=== PATIENT | female | born 1990 | race American Indian/Alaskan Native ===

== ENCOUNTER 2017-03-22 01:46 | Emergency (ER) | payer MEDICAID ==
[2017-03-22 08:04] VITALS: BMI 37.2
== END 2017-03-22 06:58 | disposition left against medical advice (07) ==
LOC: ED 01:46
DX: Z02.89 Encounter for other administrative examinations (principal); M25.561 Pain in right knee

== ENCOUNTER 2017-03-22 07:39 | Emergency (ER) | payer MEDICAID ==
[2017-03-22 08:04] VITALS: RESP 16; TEMP 98.3; BMI 37.2
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
--- NOTE | 2017-03-22 09:48 | RAD ---
PROCEDURE: Right Knee Radiographs. HISTORY: r/o fracture COMPARISON: No prior study available for comparison FINDINGS: BONES: No evidence of acute displaced fracture nor dislocation. The osseous structures appear intact. JOINTS: Joint spaces preserved. No significant osteoarthritis. . JOINT EFFUSION: Small suprapatellar joint effusion OTHER FINDINGS: No acute fracture seen. Small suprapatellar joint effusion IMPRESSION: No acute fracture seen. Small suprapatellar joint effusion if symptoms persist or occult fracture suspected clinically recommend repeat followup CT scan or MRI for further evaluation.
[2017-03-22 09:51] VITALS: BP 92/62; PULSE 90; O2SAT 98
== END 2017-03-22 09:52 | disposition home or self-care (01) ==
LOC: ED 07:39
DX: S83.91XA Sprain of unspecified site of right knee, initial encounter (principal); X50.0XXA Overexertion from strenuous movement or load, initial encounter; Y93.89 Activity, other specified; Y92.89 Other specified places as the place of occurrence of the external cause

== ENCOUNTER 2017-04-16 20:29 | Emergency (ER) | payer MEDICAID ==
[2017-04-16 21:09] VITALS: RESP 16; TEMP 98.3; BMI 36.0
--- NOTE | 2017-04-16 21:30 | ED PDOC ---
Arrival/HPI - General Chief Complaint: Lower Extremity Problem/Injury Time Seen by Provider: 04/16/17 20:52 - History of Present Illness Narrative History of Present Illness (Text): 04/16/17 21:28 26 yo female, presents with right lower leg pain after injury a few weeks ago. pt had neg knee imaging, but states pain now in her lower leg. no new trauma, or other complaint Past Medical History - Provider Review Nursing Documentation Reviewed: Yes - Infectious Disease Hx of Infectious Diseases: None - Tetanus Immunization Tetanus Immunization: Unknown - Cardiac Hx Cardiac Disorders: No - Pulmonary Hx Respiratory Disorders: No - Neurological Hx Neurological Disorder: No - HEENT Hx HEENT Disorder: No - Renal Hx Renal Disorder: No - Endocrine/Metabolic Hx Endocrine Disorders: No - Hematological/Oncological Hx Blood Disorders: Yes Hx Anemia: Yes (sickle cell) Hx Sickle Cell Trait: Yes - Integumentary Hx Dermatological Disorder: No - Musculoskeletal/Rheumatological Hx Musculoskeletal Disorders: No - Gastrointestinal Hx Gastrointestinal Disorders: No - Genitourinary/Gynecological Hx Genitourinary Disorders: No - Psychiatric Hx Psychophysiologic Disorder: No Hx Substance Use: No - Surgical History Hx Tonsillectomy: Yes (2009) - Anesthesia Hx Anesthesia: Yes Hx Anesthesia Reactions: No Hx Malignant Hyperthermia: No - Suicidal Assessment Feels Threatened In Home Enviroment: No Family/Social History - Physician Review Nursing Documentation Reviewed: Yes Family/Social History: Unknown Family HX Smoking Status: Never Smoked Hx Alcohol Use: No Hx Substance Use: No Hx Substance Use Treatment: No Allergies/Home Meds Allergies/Adverse Reactions: Allergies No Known Allergies Allergy (Verified 03/22/17 08:04) Review of Systems - Review of Systems Constitutional: Normal Eyes: Normal ENT: Normal Respiratory: Normal Cardiovascular: Normal Gastrointestinal: Normal Genitourinary Female: Normal Musculoskeletal: Other (leg pain) Skin: Normal Neurological: Normal Endocrine: Normal Hemo/Lymphatic: Normal Psychiatric: Normal Physical Exam Vital Signs Temp Pulse Resp BP Pulse Ox 04/16/17 23:25 72 16 114/82 100 04/16/17 21:08 98.3 F 77 16 112/78 97 Temperature: Afebrile Blood Pressure: Normal Pulse: Regular Respiratory Rate: Normal Appearance: Positive for: Well-Appearing, Non-Toxic, Comfortable Pain Distress: None Mental Status: Positive for: Alert and Oriented X 3 - Systems Exam Head: Present: Atraumatic, Normocephalic Pupils: Present: PERRL Extroacular Muscles: Present: EOMI Conjunctiva: Present: Normal Mouth: Present: Moist Mucous Membranes Neck: Present: Normal Range of Motion Respiratory/Chest: Present: Clear to Auscultation, Good Air Exchange. No: Respiratory Distress, Accessory Muscle Use Cardiovascular: Present: Regular Rate and Rhythm, Normal S1, S2. No: Murmurs Abdomen: Present: Normal Bowel Sounds. No: Tenderness, Distention, Peritoneal Signs Back: Present: Normal Inspection Upper Extremity: Present: Normal Inspection. No: Cyanosis, Edema Lower Extremity: Present: Normal Inspection, NORMAL PULSES, Tenderness (right knee lower leg), Swelling (right knee/lower leg), Neurovascularly Intact. No: Edema, Deformity Neurological: Present: GCS=15, CN II-XII Intact, Speech Normal Skin: Present: Warm, Dry, Normal Color. No: Rashes Psychiatric: Present: Alert, Oriented x 3, Normal Insight, Normal Concentration Medical Decision Making ED Course and Treatment: 04/17/17 15:10 pt with3 weeks of lower leg pain. no new trauma. repeat imaging neg. dvt study neg. advise outpt f/u return precautions advised. 04/17/17 15:10 pt given knee immoblizer and crutches. - RAD Interpretation Radiology Orders: 04/16/17 21:13 KNEE RIGHT 2 VIEWS (AP & LAT) [RAD] Stat TIBIA FIBULA RIGHT [RAD] Stat 04/16/17 21:26 DUPLEX LOWER EXTRM VEIN RIGHT [US] Stat - Medication Orders Current Medication Orders: Discontinued Medications Acetaminophen (Tylenol 325mg Tab) 975 mg PO STAT STA Stop: 04/16/17 21:14 Last Admin: 04/16/17 21:23 Dose: 975 mg Disposition/Present on Arrival - Present on Arrival Any Indicators Present on Arrival: No History of DVT/PE: No History of Uncontrolled Diabetes: No Urinary Catheter: No History of Decub. Ulcer: No History Surgical Site Infection Following: None - Disposition Have Diagnosis and Disposition been Completed?: Yes Diagnosis: Leg injury Disposition: HOME/ ROUTINE Disposition Time: 11:00 Condition: STABLE Discharge Instructions (ExitCare): Knee Sprain (ED), Leg Sprain (ED), Knee Immobilizer (ED) Referrals: Rome Hansen MD [Staff Provider] - Follow up with primary Rin Linares DO [Primary Care Provider] - Follow up with primary Forms: [employer] (Japanese)
[2017-04-16 23:28] VITALS: BP 114/82; PULSE 72; O2SAT 100
--- NOTE | 2017-04-17 08:06 | US ---
PROCEDURE: Right lower extremity venous US HISTORY: Leg pain and swelling. Evaluate for DVT. PHYSICIAN(S): Iraj Guidry M.D. TECHNIQUE: Duplex sonography and color-flow Doppler with graded compression were used to evaluate the deep venous system of the right lower extremity. FINDINGS: The visualized deep venous system of the right lower extremity is sonographically normal and compressible. Normal waveforms and augmentation are seen. There is no sonographic evidence for deep venous thrombosis in the visualized segments of the right lower extremity. IMPRESSION: 1. No sonographic evidence for deep venous thrombosis in the visualized segments of the right lower extremity.
--- NOTE | 2017-04-17 09:24 | RAD ---
PROCEDURE: Right Knee Radiographs. HISTORY: fall COMPARISON: None. FINDINGS: BONES: Normal. No fracture. JOINTS: Normal. No osteoarthritis. JOINT EFFUSION: None. OTHER FINDINGS: None. IMPRESSION: Normal radiographs of the right knee.
--- NOTE | 2017-04-17 09:24 | RAD ---
PROCEDURE: Radiographs of the right tibia and fibula. HISTORY: fall COMPARISON: None available. TECHNIQUE: Frontal and lateral views obtained. FINDINGS: BONES: No fracture or destructive lesion. JOINT SPACES: Unremarkable. OTHER FINDINGS: None. IMPRESSION: Unremarkable radiographs of the right tibia and fibula.
== END 2017-04-16 23:27 | disposition home or self-care (01) ==
LOC: ED 20:29
DX: S89.91XA Unspecified injury of right lower leg, initial encounter (principal); X58.XXXA Exposure to other specified factors, initial encounter

== ENCOUNTER 2017-07-24 07:13 | Emergency (ER) | payer OTHER, MEDICAID ==
[2017-07-24 07:41] VITALS: BP 108/66; PULSE 69; RESP 18; TEMP 98.4; O2SAT 100; BMI 38.4
--- NOTE | 2017-07-24 08:02 | ED PDOC ---
Arrival/HPI - General Chief Complaint: Trauma Time Seen by Provider: 07/24/17 07:42 Historian: Patient - History of Present Illness Narrative History of Present Illness (Text): 07/24/17 08:02 A 26 year old female, whose past medical history includes anemia and tonsillectomy, presents to the emergency department requesting an MRI for her right knee pain. The patient states that 3 weeks ago she sustained an injury to her right knee at work. She was sent to the work place's doctor and an X-Ray was done, which appeared to be normal. She was also seen at [facility] where she had an X-Ray and CT done with no acute findings. At physical therapy she was told that it may be a torn ACL and was advised to get an MRI. The patient denies fevers, chills, headache, dizziness, chest pain, shortness of breath, dyspnea on exertion, cough, abdominal pain, nausea, vomiting, diarrhea, back pain, neck pain, urinary/bowel changes, or any other complaint. PMD: Dr. Matias Linares Time/Duration: Other (3 weeks) Symptom Onset: Sudden Symptom Course: Unchanged Activities at Onset: Rest, Light Context: Work Past Medical History - Provider Review Nursing Documentation Reviewed: Yes - Infectious Disease Hx of Infectious Diseases: None - Tetanus Immunization Tetanus Immunization: Unknown - Cardiac Hx Cardiac Disorders: No - Pulmonary Hx Respiratory Disorders: No - Neurological Hx Neurological Disorder: No - HEENT Hx HEENT Disorder: No - Renal Hx Renal Disorder: No - Endocrine/Metabolic Hx Endocrine Disorders: No - Hematological/Oncological Hx Blood Disorders: Yes Hx Anemia: Yes (sickle cell) Hx Sickle Cell Trait: Yes - Integumentary Hx Dermatological Disorder: No - Musculoskeletal/Rheumatological Hx Musculoskeletal Disorders: No - Gastrointestinal Hx Gastrointestinal Disorders: No - Genitourinary/Gynecological Hx Genitourinary Disorders: No - Psychiatric Hx Psychophysiologic Disorder: No Hx Substance Use: No - Surgical History Hx Tonsillectomy: Yes (2009) - Anesthesia Hx Anesthesia: Yes Hx Anesthesia Reactions: No Hx Malignant Hyperthermia: No - Suicidal Assessment Feels Threatened In Home Enviroment: No Family/Social History - Physician Review Nursing Documentation Reviewed: Yes Family/Social History: No Known Family HX Smoking Status: Never Smoked Hx Alcohol Use: No Hx Substance Use: No Hx Substance Use Treatment: No Allergies/Home Meds Allergies/Adverse Reactions: Allergies No Known Allergies Allergy (Verified 07/16/17 08:04) Home Medications: Home Meds Medication Instructions Recorded Confirmed Ibuprofen [Advil] 500 mg PO HS 07/24/17 07/24/17 Review of Systems - Physician Review All systems were reviewed & negative as marked: Yes - Review of Systems Constitutional: absent: Fevers Cardiovascular: absent: Chest Pain Physical Exam - Physical Exam Narrative Physical Exam (Text): 07/24/17 08:05 Constitutional: No acute distress. Head: Normocephalic. Atraumatic. Eyes: PERRL. ENT: Moist mucous membranes. Neck: Supple. Cardiovascular: Regular rate. Chest: No tenderness. Respiratory: Clear to auscultation bilaterally. GI: Soft. Nontender. Nondistended. Back: No CVA tenderness. Musculoskeletal: Mild swelling of knee. Full active and passive ROM. No bony tenderness. Minimal edema. Dorsalis pedis pulses 2+. Skin: No rash. Neurologic: Alert, no focal deficit. Sensation to light touch intact. Motor intact. Vital Signs Reviewed: Yes Vital Signs Temp Pulse Resp BP Pulse Ox 07/24/17 07:14 98.4 F 69 18 108/66 100 Temperature: Afebrile Blood Pressure: Normal Pulse: Regular Respiratory Rate: Normal Appearance: Positive for: Well-Appearing, Non-Toxic, Comfortable Pain Distress: None Mental Status: Positive for: Alert and Oriented X 3 Medical Decision Making ED Course and Treatment: 07/24/17 08:07 Impression: A 26 year old female presents to the emergency department requesting an MRI for he right knee pain . Plan: -- Reassess and disposition Prior Visits: Notes and results from previous visits were reviewed. Patient was last seen in the emergency department on 07/13/2017. The patient was seen in the emergency department with a complaint of right knee pain. Patient was discharged home. Progress Notes: I reviewed CT which did reveal suprapatellar effusion, small. May be due to ACL tear, can be other ligamentous injury as well. Informed patient that no indication for MRI in ED, unable to obtain. Discharged home, f/u primary care, return to ED for worsening pain, fever, inability to range. - Scribe Statement The provider has reviewed the documentation as recorded by the Jerry Cano Provider Scribe Attestation: All medical record entries made by the Scribe were at my direction and personally dictated by me. I have reviewed the chart and agree that the record accurately reflects my personal performance of the history, physical exam, medical decision making, and the department course for this patient. I have also personally directed, reviewed, and agree with the discharge instructions and disposition. Disposition/Present on Arrival - Present on Arrival Any Indicators Present on Arrival: No History of DVT/PE: No History of Uncontrolled Diabetes: No Urinary Catheter: No History of Decub. Ulcer: No History Surgical Site Infection Following: None - Disposition Have Diagnosis and Disposition been Completed?: Yes Diagnosis: Knee injury Disposition: HOME/ ROUTINE Disposition Time: 08:03 Patient Plan: Discharge Condition: STABLE Discharge Instructions (ExitCare): Swollen Knee Joint (ED) Referrals: Rin Linares DO [Primary Care Provider] - Follow up with primary Forms: [employer] (Romanian)
== END 2017-07-24 08:16 | disposition home or self-care (01) ==
LOC: ED 07:13
DX: S89.91XD Unspecified injury of right lower leg, subsequent encounter (principal); X50.1XXD Overexertion from prolonged static or awkward postures, subsequent encounter

== ENCOUNTER 2017-08-07 08:23 | Emergency (ER) | payer MEDICAID, OTHER ==
[2017-08-07 08:23] VITALS: BMI 38.4
--- NOTE | 2017-08-07 08:57 | ED PDOC ---
Arrival/HPI - History of Present Illness Time/Duration: > month Symptom Onset: Sudden Symptom Course: Unchanged Quality: Stabbing Severity Level: 7 <Venus Setele - Last Filed: 08/07/17 10:13> - General Historian: Patient <Ramón Sweeney - Last Filed: 08/07/17 14:34> - General Chief Complaint: Lower Extremity Problem/Injury Time Seen by Provider: 08/07/17 08:24 - History of Present Illness Narrative History of Present Illness (Text): 26 year old female with PMHx of anemia who presents to the ED with complaints of right knee pain. Patient has been to this ED several times for same symptoms. Patient suffered trauma to the knee in March and then again in July. Previous x-rays were negative for any fractures or dislocations. CT scan showed small suprapatellar joint effusion. Today patient complains of 7/ 10 sharp, non-radiating pain right knee pain with mild swelling and decreased range of motion. Patient has been going to PT which she states has not helped. She has been using ibuprofen 600mg and Tramadol to control the pain. PMHx: Anemia PSHx: tonsillectormy Allergies: NKDA SocialHx: denies tobacco, admits to social alcohol use, denies illicit drug use. FamHx: Diabetes (Great grandmother, and grandmother) Meds: Weekly IV iron. (Venus Steele) Past Medical History - Provider Review Nursing Documentation Reviewed: Yes - Infectious Disease Hx of Infectious Diseases: None - Tetanus Immunization Tetanus Immunization: Unknown - Cardiac Hx Cardiac Disorders: No - Pulmonary Hx Respiratory Disorders: No - Neurological Hx Neurological Disorder: No - HEENT Hx HEENT Disorder: No - Renal Hx Renal Disorder: No - Endocrine/Metabolic Hx Endocrine Disorders: No - Hematological/Oncological Hx Blood Disorders: Yes Hx Anemia: Yes (sickle cell) - Integumentary Hx Dermatological Disorder: No - Musculoskeletal/Rheumatological Hx Musculoskeletal Disorders: No - Gastrointestinal Hx Gastrointestinal Disorders: No - Genitourinary/Gynecological Hx Genitourinary Disorders: No - Psychiatric Hx Psychophysiologic Disorder: No Hx Substance Use: No - Surgical History Hx Tonsillectomy: Yes (2009) - Anesthesia Hx Anesthesia: Yes Hx Anesthesia Reactions: No Hx Malignant Hyperthermia: No - Suicidal Assessment Feels Threatened In Home Enviroment: No <Venus Steele - Last Filed: 08/07/17 10:13> Family/Social History - Physician Review Nursing Documentation Reviewed: Yes Family/Social History: Diabetes Smoking Status: Never Smoked Hx Alcohol Use: Yes Frequency of alcohol use: Socially Hx Substance Use: No Hx Substance Use Treatment: No <Venus Steele - Last Filed: 08/07/17 10:13> Allergies/Home Meds <Venus Steele - Last Filed: 08/07/17 10:13> <Ramón Sweeney - Last Filed: 08/07/17 14:34> Allergies/Adverse Reactions: Allergies No Known Allergies Allergy (Verified 08/07/17 08:34) Home Medications: Home Meds Medication Instructions Recorded Confirmed No Known Home Med 08/07/17 08/07/17 Review of Systems - Physician Review All systems were reviewed & negative as marked: Yes (As per HPI) - Review of Systems Respiratory: Normal. absent: SOB Cardiovascular: Normal. absent: Chest Pain Gastrointestinal: Normal. absent: Abdominal Pain <Venus Steele - Last Filed: 08/07/17 10:13> Physical Exam Vital Signs Reviewed: Yes Temperature: Afebrile Blood Pressure: Normal Pulse: Regular Respiratory Rate: Normal Appearance: Positive for: Well-Appearing Pain Distress: Mild Mental Status: Positive for: Alert and Oriented X 3 - Systems Exam Head: Present: Atraumatic, Normocephalic Conjunctiva: Present: Normal Ears: Present: Normal Mouth: Present: Moist Mucous Membranes Respiratory/Chest: Present: Clear to Auscultation. No: Wheezes Cardiovascular: Present: Regular Rate and Rhythm, Normal S1, S2. No: Murmurs Abdomen: No: Tenderness Upper Extremity: Present: Other (Right Knee Pain. TTP around superior and medial aspect of knee. Positive patella grind test and Varus stress test. Negative Lachmans, anteior and posterior grind test. ) Neurological: Present: GCS=15, Speech Normal <Venus Steele - Last Filed: 08/07/17 10:13> Vital Signs Temp Pulse Resp BP Pulse Ox 08/07/17 10:12 98.1 F 72 17 125/82 98 08/07/17 08:29 97.6 F 84 16 124/70 99 Medical Decision Making <CedricVenus - Last Filed: 08/07/17 10:13> <Ramón Sweeney - Last Filed: 08/07/17 14:34> ED Course and Treatment: 26 year old female with PMHx of Anemia presents with Right knee pain --Right Knee X-ray --Toradol for Pain Control --Patient has been told that MRI was not indicated in the ED for her at this time. --Patient was advised to follow up with primary care doctor or orthopedic surgeon evaluation and referral for MRI --Reassess and disposition Reassessment --X-ray negative for acute fractures or displacement. --Will ask patient to take over the counter NSAIDS for pain control --Will reinforce the need to follow up with her primary care doctor or Orthopedic Surgeon/Sport Medicine Physician. 08/07/17 09:58 (Venus Steele) 08/07/17 11:51 Zeb Leiva is a 26 year old female who presents to the emergency department with right knee pain requesting an MRI. She has been treated in the emergency department for her currents symptoms. In agreement with resident note which contains more details about the patient. Patient was seen and evaluated with resident. Came up with plan and treatment together. 08/07/17 14:34 seen with resident, persistent knee pain due for outpt mri. xr neg. advise outpt mri. (Ramón Sweeney) - RAD Interpretation Radiology Orders: 08/07/17 08:55 KNEE W PATELLA RIGHT 3 VIEW [RAD] Stat Disposition/Present on Arrival - Present on Arrival Any Indicators Present on Arrival: No History of DVT/PE: No History of Uncontrolled Diabetes: No Urinary Catheter: No History of Decub. Ulcer: No History Surgical Site Infection Following: None - Disposition Have Diagnosis and Disposition been Completed?: Yes Disposition Time: 09:51 <Venus Steele - Last Filed: 08/07/17 10:13> <Ramón Sweeney - Last Filed: 08/07/17 14:34> - Disposition Diagnosis: Knee pain Disposition: HOME/ ROUTINE Condition: GOOD Discharge Instructions (ExitCare): Knee Pain (ED) Additional Instructions: Please follow up with your primary care physician. Please follow up with an orthopedic surgeon or sports medicine physician. You may continue to take Ibuprofen for pain control. You may Ice the area of pain for 20-30 minutes every 4 hours to help reduce any inflammation. Forms: [employer] ([place])
[2017-08-07 10:13] VITALS: BP 125/82; PULSE 72; RESP 17; TEMP 98.1; O2SAT 98
--- NOTE | 2017-08-07 10:36 | RAD ---
PROCEDURE: Right Knee Radiographs. HISTORY: Knee Pain COMPARISON: None. FINDINGS: BONES: Normal. No fracture. JOINTS: Normal. No osteoarthritis. JOINT EFFUSION: None. OTHER FINDINGS: None. IMPRESSION: Normal radiographs of the right knee.
== END 2017-08-07 10:13 | disposition home or self-care (01) ==
LOC: ED 08:23
DX: M25.561 Pain in right knee (principal)

== ENCOUNTER 2017-08-22 09:35 | Emergency (ER) | payer OTHER ==
[2017-08-22 09:35] VITALS: BMI 38.4
[2017-08-22 09:57] VITALS: BP 119/71; PULSE 79; RESP 18; TEMP 98.5; O2SAT 99
--- NOTE | 2017-08-22 10:03 | ED PDOC ---
Arrival/HPI - General Historian: Patient <Christian Belle A - Last Filed: 08/22/17 10:05> <Jo-Ann Mayers - Last Filed: 08/23/17 18:38> - General Chief Complaint: Lower Extremity Problem/Injury Time Seen by Provider: 08/22/17 09:54 - History of Present Illness Narrative History of Present Illness (Text): 08/22/17 10:05 26yo female with PMHx of anemia present with right knee pain. she reports falling a month ago and injuring the knee. Notes that she had negative knee xray and had an MRI yesterday. Pain is with ambulation. Came to ED today because she was sent from work and she was required to see a Doctor. she states she have Ibuprofen 600mg, but stopped taking it because it wasn't working. she have Orthopedic appointment on Thursday. Denies calf pain, swelling, any other complaint. (Christian Belle A) Past Medical History - Provider Review Nursing Documentation Reviewed: Yes - Infectious Disease Hx of Infectious Diseases: None - Tetanus Immunization Tetanus Immunization: Unknown - Cardiac Hx Cardiac Disorders: No - Pulmonary Hx Respiratory Disorders: No - Neurological Hx Neurological Disorder: No - HEENT Hx HEENT Disorder: No - Renal Hx Renal Disorder: No - Endocrine/Metabolic Hx Endocrine Disorders: No - Hematological/Oncological Hx Blood Disorders: Yes Hx Anemia: Yes (sickle cell) - Integumentary Hx Dermatological Disorder: No - Musculoskeletal/Rheumatological Hx Musculoskeletal Disorders: No - Gastrointestinal Hx Gastrointestinal Disorders: No - Genitourinary/Gynecological Hx Genitourinary Disorders: No - Psychiatric Hx Psychophysiologic Disorder: No Hx Substance Use: No - Surgical History Hx Tonsillectomy: Yes (2009) - Anesthesia Hx Anesthesia: Yes Hx Anesthesia Reactions: No Hx Malignant Hyperthermia: No - Suicidal Assessment Feels Threatened In Home Enviroment: No <Christian Belle A - Last Filed: 08/22/17 10:05> Family/Social History - Physician Review Nursing Documentation Reviewed: Yes Family/Social History: Unknown Family HX Smoking Status: Never Smoked Hx Alcohol Use: Yes Hx Substance Use: No Hx Substance Use Treatment: No <Christian Belle A - Last Filed: 08/22/17 10:05> Allergies/Home Meds <Christian Belle A - Last Filed: 08/22/17 10:05> <Jo-Ann Mayers - Last Filed: 08/23/17 18:38> Allergies/Adverse Reactions: Allergies No Known Allergies Allergy (Verified 08/22/17 09:50) Review of Systems - Physician Review All systems were reviewed & negative as marked: Yes - Review of Systems Constitutional: Normal Eyes: Normal ENT: Normal Respiratory: Normal Cardiovascular: Normal Gastrointestinal: Normal Genitourinary Female: Normal Musculoskeletal: Arthralgias (Right knee pain) Skin: Normal Neurological: Normal Endocrine: Normal Hemo/Lymphatic: Normal Psychiatric: Normal <DiruChristian A - Last Filed: 08/22/17 10:05> Physical Exam Vital Signs Reviewed: Yes Temperature: Afebrile Blood Pressure: Normal Pulse: Regular Respiratory Rate: Normal Appearance: Positive for: Well-Appearing, Non-Toxic, Comfortable Pain Distress: None Mental Status: Positive for: Alert and Oriented X 3 - Systems Exam Head: Present: Atraumatic, Normocephalic Pupils: Present: PERRL Extroacular Muscles: Present: EOMI Conjunctiva: Present: Normal Mouth: Present: Moist Mucous Membranes Neck: Present: Normal Range of Motion Respiratory/Chest: Present: Clear to Auscultation, Good Air Exchange. No: Respiratory Distress, Accessory Muscle Use Cardiovascular: Present: Regular Rate and Rhythm, Normal S1, S2. No: Murmurs Abdomen: Present: Normal Bowel Sounds. No: Tenderness, Distention, Peritoneal Signs Back: Present: Normal Inspection Upper Extremity: Present: Normal Inspection. No: Cyanosis, Edema Lower Extremity: Present: NORMAL PULSES, Normal ROM, Tenderness (Focal medial right knee), Neurovascularly Intact. No: Edema, Swelling Neurological: Present: GCS=15, CN II-XII Intact, Speech Normal Skin: Present: Warm, Dry, Normal Color. No: Rashes Psychiatric: Present: Alert, Oriented x 3, Normal Insight, Normal Concentration <DiruHappiness A - Last Filed: 08/22/17 10:05> Vital Signs Temp Pulse Resp BP Pulse Ox 08/22/17 09:40 98.5 F 79 18 119/71 99 Medical Decision Making <katharinaHappiness A - Last Filed: 08/22/17 10:05> <Jo-Ann Mayers - Last Filed: 08/23/17 18:38> ED Course and Treatment: 08/22/17 10:09 Pt was ambulatory in ED. she have a PMD and orthopedist. She was given Tramadol in ED and will be DC home with a Naprosyn. To f/u with her Orthopedist. (Christian Belle) - Medication Orders Current Medication Orders: Discontinued Medications Tramadol HCl (Ultram) 50 mg PO STAT STA Stop: 08/22/17 09:55 Last Admin: 08/22/17 10:28 Dose: 50 mg MAR Pain Assessment Document 08/22/17 10:28 EWO (Rec: 08/22/17 10:28 EWO [id number]) Pain Reassessment Is this a pain reassessment? No Sleep Is patient sleeping during reassessment? No Presence of Pain Presence of Pain Yes Pain Scale Used Pain Scale Used Numeric Location Left, Right or Bilateral Right Pain Location Body Site Knee Description Description Intermittent Intensity of Pain at present 7 Pain Behavior Guarding - PA / SAUSAGE SMOKER / Resident Statement / has reviewed & agrees with the documentation as recorded. <Jo-Ann Mayers - Last Filed: 08/23/17 18:38> Disposition/Present on Arrival - Present on Arrival Any Indicators Present on Arrival: No History of DVT/PE: No History of Uncontrolled Diabetes: No Urinary Catheter: No History of Decub. Ulcer: No History Surgical Site Infection Following: None - Disposition Have Diagnosis and Disposition been Completed?: Yes Disposition Time: 10:10 Patient Plan: Discharge <Christian Belle - Last Filed: 08/22/17 10:05> - Present on Arrival Any Indicators Present on Arrival: No History of DVT/PE: No History of Uncontrolled Diabetes: No Urinary Catheter: No History of Decub. Ulcer: No History Surgical Site Infection Following: None - Disposition Have Diagnosis and Disposition been Completed?: Yes Patient Plan: Discharge <Jo-Ann Mayers - Last Filed: 08/23/17 18:38> - Disposition Diagnosis: Knee pain Disposition: HOME/ ROUTINE Condition: STABLE Discharge Instructions (ExitCare): Knee Pain (ED) Additional Instructions: Follow up with your Doctor/orthopedist TRT ED for any new or worsening symptoms Prescriptions: Naproxen [Naprosyn] 500 mg PO BID #20 tablet Referrals: Rin Linares DO [Primary Care Provider] - Follow up with primary Forms: [employer] ([place])
== END 2017-08-22 10:31 | disposition home or self-care (01) ==
LOC: ED 09:35
DX: M25.561 Pain in right knee (principal)

== ENCOUNTER 2018-05-31 08:40 | Emergency (ER) | payer MEDICAID ==
[2018-05-31 08:41] VITALS: BMI 38.4
[2018-05-31 09:00] VITALS: RESP 18; TEMP 98.4; O2SAT 100
[2018-05-31] MEDS ORDERED: Sodium Chloride 0.9% 1,000 ML IV STA (09:19)
[2018-05-31 09:41] LABS: BASO # 0.01 K/mm3 (0.0-2.0); GRAN # 17.85 (1.4-6.5); GRAN % 88.2 % (50.0-68.0); HEMOGLOBIN 10.1 g/dL (12.0-16.0); LYMPH # 1.6 (1.2-3.4); LYMPH % 7.9 % (22.0-35.0); MEAN CELL VOLUME 74.9 fl (80.0-105.0); MEAN CORPUSCULAR HEMOGLOBIN 23.1 pg (25.0-35.0); MEAN CORPUSCULAR HGB CONC 30.8 g/dl (31.0-37.0); MEAN PLATELET VOLUME 8.8 fl (7.0-11.0); MONO # 0.8 (0.1-0.6); MONO % 3.9 % (1.0-6.0); RBC 4.38 10^6/uL (3.5-6.1); WHITE BLOOD COUNT 20.3 10^3/ul (4.5-11.0)
[2018-05-31 09:50] LABS: PH,URINE >=9.0 (4.7-8.0); URINE BILIRUBIN NEGATIVE (NEGATIVE); URINE BLOOD LARGE (NEGATIVE); URINE GLUCOSE (UA) NEGATIVE (NEGATIVE); URINE LEUKOCYTE ESTERASE TRACE Leu/uL (NEGATIVE); URINE PROTEIN 100 mg/dL (<30 mg/dL)
[2018-05-31 09:52] LABS: URINE APPEARANCE TURBID (CLEAR); URINE COLOR RED (YELLOW)
[2018-05-31 09:54] LABS: URINE BACTERIA FEW (NEG); URINE RBC TNTC /hpf (0-2)
[2018-05-31 09:56] LABS: ALBUMIN 4.3 g/dL (3.0-4.8); ALT/SGPT 16 U/L (7-56); AST/SGOT 27 U/L (14-36); BLOOD UREA NITROGEN 6 mg/dL (7-21); CALCIUM 9.5 mg/dL (8.4-10.5); GFR NON-AFRICAN AMERICAN > 60; LIPASE 29 U/L (23-300)
--- NOTE | 2018-05-31 09:56 | ED PDOC ---
Arrival/HPI - General Chief Complaint: Abdominal Pain Time Seen by Provider: 05/31/18 08:57 Historian: Patient - History of Present Illness Narrative History of Present Illness (Text): 05/31/18 09:15 27 year old female, whose past medical history includes tonsillectomy and anemia, who presents to the Emergency department complaining of lower abdominal pain for the past 2 weeks, 8/10 pain described as pressure. Patient notes nausea and slight decrease in appetite. Patient denies any fever, chills, chest pain, shortness of breath, vomiting, diarrhea, urinary symptoms, vaginal bleeding/discharge, back pain, neck pain, headache, dizziness, or any other complaints. Time/Duration: < week (past 2 weeks) Symptom Onset: Sudden Symptom Course: Unchanged Quality: Pressure Severity Level: 8 Context: Home Past Medical History - Provider Review Nursing Documentation Reviewed: Yes - Infectious Disease Hx of Infectious Diseases: None - Tetanus Immunization Tetanus Immunization: Unknown - Cardiac Hx Pacemaker: No - Pulmonary Hx Respiratory Disorders: No - Neurological Hx Paralysis: No - HEENT Hx HEENT Disorder: No - Renal Hx Renal Disorder: No - Endocrine/Metabolic Hx Endocrine Disorders: No - Hematological/Oncological Hx Blood Disorders: Yes Hx Anemia: Yes Hx Blood Transfusions: Yes (LAST WEEK) Hx Blood Transfusion Reaction: No - Integumentary Hx Dermatological Disorder: No - Musculoskeletal/Rheumatological Hx Musculoskeletal Disorders: No - Gastrointestinal Hx Gastrointestinal Disorders: No - Genitourinary/Gynecological Hx Genitourinary Disorders: No - Psychiatric Hx Emotional Abuse: No Hx Physical Abuse: No Hx Substance Use: No - Surgical History Hx Tonsillectomy: Yes - Anesthesia Hx Anesthesia Reactions: No Hx Malignant Hyperthermia: No - Suicidal Assessment Feels Threatened In Home Enviroment: No Family/Social History - Physician Review Nursing Documentation Reviewed: Yes Family/Social History: No Known Family HX Smoking Status: Never Smoked Hx Alcohol Use: Yes (SOCIAL) Frequency of alcohol use: Socially Hx Substance Use: No Hx Substance Use Treatment: No Allergies/Home Meds Allergies/Adverse Reactions: Allergies No Known Allergies Allergy (Verified 05/31/18 08:59) Home Medications: Home Meds Medication Instructions Recorded Confirmed RX: No Known Home Med 05/28/18 06/02/18 Review of Systems - Physician Review All systems were reviewed & negative as marked: Yes - Review of Systems Constitutional: Normal. absent: Fevers Eyes: Normal ENT: Normal Respiratory: Normal. absent: SOB Cardiovascular: Normal. absent: Chest Pain Gastrointestinal: Abdominal Pain (patient notes lower abdominal pain), Nausea (patient notes nausea), Appetite Changes (patient notes slight decrease in appetite). absent: Normal, Diarrhea, Vomiting Genitourinary Female: Normal. absent: Dysuria, Vaginal Bleeding, Vaginal Discharge Musculoskeletal: Normal. absent: Back Pain, Neck Pain Skin: Normal Neurological: Normal. absent: Headache, Dizziness Endocrine: Normal Hemo/Lymphatic: Normal Psychiatric: Normal Physical Exam Vital Signs Reviewed: Yes Vital Signs Temp Pulse Resp BP Pulse Ox 05/31/18 16:10 66 18 109/58 L 100 05/31/18 15:48 68 18 107/53 L 100 05/31/18 14:28 73 18 113/61 100 05/31/18 12:48 89 18 111/65 100 05/31/18 11:09 94 H 18 109/68 100 05/31/18 08:59 98.4 F 102 H 18 107/66 100 Temperature: Afebrile Blood Pressure: Normal Pulse: Tachycardic Respiratory Rate: Normal Appearance: Positive for: Well-Appearing, Non-Toxic Pain Distress: Mild Mental Status: Positive for: Alert and Oriented X 3 - Systems Exam Head: Present: Atraumatic, Normocephalic Pupils: Present: PERRL Extroacular Muscles: Present: EOMI Conjunctiva: Present: Normal Mouth: Present: Moist Mucous Membranes Neck: Present: Normal Range of Motion Respiratory/Chest: Present: Clear to Auscultation, Good Air Exchange. No: Respiratory Distress, Accessory Muscle Use Cardiovascular: Present: Regular Rate and Rhythm, Normal S1, S2. No: Murmurs Abdomen: Present: Tenderness (diffuse abdominal tenderness, mostly in lower abdomen). No: Distention, Peritoneal Signs Back: Present: Normal Inspection Upper Extremity: Present: Normal Inspection. No: Cyanosis, Edema Lower Extremity: Present: Normal Inspection. No: Edema Neurological: Present: GCS=15, CN II-XII Intact, Speech Normal Skin: Present: Warm, Dry, Normal Color. No: Rashes Psychiatric: Present: Alert, Oriented x 3, Normal Insight, Normal Concentration Medical Decision Making ED Course and Treatment: 05/31/18 09:15 Impression: 27 year old female presents to the Emergency department for lower abdominal pain for past 2 weeks. Differential Diagnosis included but are not limited to: Plan: -- CT of Abdomen/Pelvis, IV contrast -- Comp Metabolic panel -- Lipase -- Magnesium -- CBC (with differential) -- IV fluids -- Zofran -- Urine culture -- Urinalysis w/micro -- Transvaginal US -- Reassess and disposition Prior Visits: Notes and results from previous visits were reviewed. Progress Notes: Transvaginal US reviewed by radiologist, shows: Dictator : Abner Haq MD Report Date : 05/31/2018 12:43:43 FINDINGS: UTERUS: Measures 5.3 x 6.2 x 8.7 cm. Normal in size and appearance. No fibroid or other mass lesion seen. ENDOMETRIUM: Measures 12.6 mm in diameter. No ultrasound findings to suggest gestational sac, fluid, debris, mass or polyp or other pathologic process within the endometrium. CERVIX: No cervical abnormality identified. RIGHT OVARY: Measures 3.3 x 5.1 x 6.5 cm. No solid mass. Normal flow. Simple cyst 2.3 x 2.4 x 2.7 cm. Additional smaller complex likely hemorrhagic cysts (2). These measure 1.5 x 1.6 cm and 1.4 x 1.7 cm LEFT OVARY: Measures 2.9 x 3.1 x 5.8 cm. No solid mass. Normal flow. Multiple subcentimeter follicles. FREE FLUID: Trace free fluid identified in the pelvis/cul de sac. OTHER FINDINGS: None. IMPRESSION: Confirmation of findings on recent CT scan. Specifically complex likely hemorrhagic right adnexal cysts. -------- CT of Abdomen/Pelvis reviewed by radiologist, shows: - After the US, spoke to Dr. Childs (gynecology) who recommends transfer to [facility] for further [facility]ER evaluation. Patient agrees and signs transfer form. - Lab Interpretations Microbiology Results: Microbiology Results 05/31/18 09:30 Urine Urine Culture - Final No Growth (<1,000 CFU/ML) Lab Results: 05/31/18 09:30 05/31/18 09:30 Lab Results 05/31/18 09:30: Sodium 138, Potassium 4.1, Chloride 104, Carbon Dioxide 22, Anion Gap 15, BUN 6 L, Creatinine 0.7, Est GFR ( Amer) > 60, Est GFR (Non-Af Amer) > 60, Random Glucose 102, Calcium 9.5, Magnesium 1.7, Total Bilirubin 0.5, AST 27, ALT 16, Alkaline Phosphatase 99, Total Protein 8.6 H, Albumin 4.3, Globulin 4.3, Albumin/Globulin Ratio 1.0 L, Lipase 29 05/31/18 09:30: Urine Color Red, Urine Appearance Turbid, Urine pH >=9.0, Ur Specific [place] 1.020, Urine Protein 100 H, Urine Glucose (UA) Negative, Urine Ketones Negative, Urine Blood Large H, Urine Nitrate Negative, Urine Bilirubin Negative, Urine Urobilinogen 2.0 H, Ur Leukocyte Esterase Trace H, Urine RBC Tntc, Urine WBC 5 - 10, Urine Bacteria Few 05/31/18 09:30: WBC 20.3 H D, RBC 4.38, Hgb 10.1 L, Hct 32.8 L, MCV 74.9 L, MCH 23.1 L, MCHC 30.8 L, RDW 26.0 H, Plt Count 492 H, MPV 8.8, Gran % 88.2 H, Lymph % (Auto) 7.9 L, [place]nn % (Auto) 3.9, Eos % (Auto) 0.0 L, Baso % (Auto) 0.0, Gran # 17.85 H, Lymph # (Auto) 1.6, Glynn # (Auto) 0.8 H, Eos # (Auto) 0.0, Baso # (Auto) 0.01 - RAD Interpretation Radiology Orders: 05/31/18 09:20 ABD & PELVIS IV CONTRAST ONLY [CT] Stat 05/31/18 11:17 TRANSVAGINAL [US] Stat Digital Project Coordinator: Radiologist - Medication Orders Current Medication Orders: Discontinued Medications Sodium Chloride (Sodium Chloride 0.9%) 1,000 mls @ 1,000 mls/hr IV .Q1H STA Stop: 05/31/18 10:18 Last Admin: 05/31/18 10:08 Dose: 1,000 mls/hr eMAR Start Stop Document 05/31/18 10:08 EQ (Rec: 05/31/18 10:08 EQ [id number]) Intravenous Solution Start Date 05/31/18 Start Time 10:08 Ketorolac Tromethamine (Toradol) 30 mg IVP STAT STA Stop: 05/31/18 13:58 Last Admin: 05/31/18 14:14 Dose: 30 mg MAR Pain Assessment Document 05/31/18 14:14 EQ (Rec: 05/31/18 14:14 EQ [id number]) Pain Reassessment Is this a pain reassessment? No Sleep Is patient sleeping during reassessment? No IVP Administration Document 05/31/18 14:14 EQ (Rec: 05/31/18 14:14 EQ [id number]) Charges for Administration # of IVP Administrations 1 Morphine Sulfate (Morphine) 2 mg IVP STAT STA Stop: 05/31/18 15:39 Last Admin: 05/31/18 15:57 Dose: 2 mg MAR Pain Assessment Document 05/31/18 15:57 EQ (Rec: 05/31/18 15:57 EQ [id number]) Pain Reassessment Is this a pain reassessment? No Sleep Is patient sleeping during reassessment? No Presence of Pain Presence of Pain Yes IVP Administration Document 09/24/18 15:57 EQ (Rec: 05/31/18 15:57 EQ [id number]) Charges for Administration # of IVP Administrations 1 Ondansetron HCl (Zofran Inj) 4 mg IVP STAT STA Stop: 05/31/18 09:20 Last Admin: 05/31/18 10:08 Dose: 4 mg IVP Administration Document 05/31/18 10:08 EQ (Rec: 05/31/18 10:08 EQ [id number]) Charges for Administration # of IVP Administrations 1 - Scribe Statement The provider has reviewed the documentation as recorded by the Scribe Ruth Costa All medical record entries made by the Scribe were at my direction and personally dictated by me. I have reviewed the chart and agree that the record accurately reflects my personal performance of the history, physical exam, medical decision making, and the department course for this patient. I have also personally directed, reviewed, and agree with the discharge instructions and disposition. Disposition/Present on Arrival - Present on Arrival Any Indicators Present on Arrival: No History of DVT/PE: No History of Uncontrolled Diabetes: No Urinary Catheter: No History of Decub. Ulcer: No History Surgical Site Infection Following: None - Disposition Have Diagnosis and Disposition been Completed?: Yes Diagnosis: Abdominal pain Disposition: Transfer [facility] Disposition Time: 10:00 Patient Problems: Current Active Problems Problem Status Onset Leukocytosis Acute Ovarian cyst Acute Pelvic inflammatory disease Acute Condition: FAIR Forms: [employer] (Filipino)
[2018-05-31] MEDS ORDERED: Iohexol 350 MG/100 ML VIAL ONE (10:03)
--- NOTE | 2018-05-31 11:14 | CT ---
Date of service: 05/31/2018 PROCEDURE: CT Abdomen and Pelvis HISTORY: Lower abdominal pain/tenderness COMPARISON: Correlation made with abdominal ultrasound 06/06/2016. TECHNIQUE: Contiguous axial images of the abdomen and pelvis performed of following intravenous injection of approximately 100 cc Visipaque Omnipaque 350 contrast material. Additional 2D sagittal and coronal reformats generated. Radiation dose: Total exam DLP = 756.81 mGy-cm. This CT exam was performed using one or more of the following dose reduction techniques: Automated exposure control, adjustment of the mA and/or kV according to patient size, and/or use of iterative reconstruction technique. FINDINGS: LOWER THORAX: Lung bases are clear. No infiltrate effusion or basilar pneumothorax. Heart appears mildly enlarged. No significant pericardial effusion. Small hiatal hernia. LIVER: Liver exhibits normal size measuring nearly 16 cm in CC dimension. Mild diffuse fatty hepatic infiltration. No obvious hepatic mass or collection. Portal and splenic veins are opacified. GALLBLADDER AND BILE DUCTS: Gallbladder appears physiologically distended. No evidence of intraluminal gallbladder calculi. PANCREAS: Pancreas appears unremarkable without masses collections calcifications or significant ductal dilatation. SPLEEN: Unremarkable. No splenomegaly. ADRENALS: Unremarkable. KIDNEYS AND URETERS: Kidneys demonstrate relatively symmetric nephrograms. No evidence of nephrolithiasis or hydronephrosis. Unremarkable. No stone or hydronephrosis. BLADDER: Urinary bladder is incompletely distended which may in part account for thick-walled appearance however correlation with urinalysis to exclude UTI/cystitis. REPRODUCTIVE: There are at least 2 peripherally enhancing (ring-like) foci within the right aspect of the pelvis likely within the right adnexal region measuring approximately 3.1 x 2.9 and 2.2 x 1.5 cm with surrounding free fluid extending into the cul de sac and extending into the right to the left side seroma partially surrounding the posterior margin of the left adnexal as well.. Findings may represent ruptured ovarian cyst and/or cysts however the possibility of a hydrosalpinx less likely however not completely excluded.. APPENDIX: Normal appearing appendix best seen on axial image number series 3 image number [id number]. No evidence of periappendiceal inflammatory changes. BOWEL: Evaluation of the bowel is somewhat limited due to the lack of oral contrast material. Stomach is incompletely distended. Visualized loops of small bowel exhibit normal contour and caliber. No evidence of acute mechanical small bowel obstruction. Stool and air seen throughout the large bowel. PERITONEUM: See above.. No free air. Small fat containing umbilical hernia. LYMPH NODES: Unremarkable. No enlarged lymph nodes. VASCULATURE: Unremarkable. No aortic aneurysm. BONES: The vertebral bodies are intact without significant degenerative spondylosis. Pelvis intact. OTHER FINDINGS: None. IMPRESSION: There are at least 2 peripherally enhancing (ring-like) foci within the right aspect of the pelvis likely within the right adnexal region measuring approximately 3.1 x 2.9 and 2.2 x 1.5 cm with surrounding free fluid extending into the cul de sac and extending into the right to the left side seroma partially surrounding the posterior margin of the left adnexal as well.. Findings may represent ruptured ovarian cyst and/or cysts however the possibility of a hydrosalpinx less likely however not completely excluded.. No evidence of acute appendicitis. No evidence of nephrolithiasis or hydronephrosis. Mild fatty hepatic infiltration. Mild cardiomegaly.
--- NOTE | 2018-05-31 12:44 | US ---
Date of service: 05/31/2018 HISTORY: lower abd pain - f/u to CT completed today LMP 05/15/2018 COMPARISON: May 31, 2018. CT abdomen and pelvis.Summary of findings on the comparison examination: Peripherally enhancing renal foci right hemipelvis TECHNIQUE: Transvaginal only. Real -time technique with 2D, duplex and color Doppler FINDINGS: UTERUS: Measures 5.3 x 6.2 x 8.7 cm. Normal in size and appearance. No fibroid or other mass lesion seen. ENDOMETRIUM: Measures 12.6 mm in diameter. No ultrasound findings to suggest gestational sac, fluid, debris, mass or polyp or other pathologic process within the endometrium. CERVIX: No cervical abnormality identified. RIGHT OVARY: Measures 3.3 x 5.1 x 6.5 cm. No solid mass. Normal flow. Simple cyst 2.3 x 2.4 x 2.7 cm. Additional smaller complex likely hemorrhagic cysts (2). These measure 1.5 x 1.6 cm and 1.4 x 1.7 cm LEFT OVARY: Measures 2.9 x 3.1 x 5.8 cm. No solid mass. Normal flow. Multiple subcentimeter follicles. FREE FLUID: Trace free fluid identified in the pelvis/cul de sac. OTHER FINDINGS: None. IMPRESSION: Confirmation of findings on recent CT scan. Specifically complex likely hemorrhagic right adnexal cysts.
[2018-05-31] MEDS ORDERED: Morphine 2 mg/ml ISec IVP STA (15:38)
[2018-05-31 16:50] VITALS: BP 109/58; PULSE 66
== END 2018-05-31 16:52 | disposition short-term general hospital (02) ==
LOC: ED 08:40
DX: R10.30 Lower abdominal pain, unspecified (principal)
CPT/HCPCS: 74177; 76830; 80053; 81001; 83690; 83735; 85025; 87086; 96374; 96375; 99285; J1885; J2270; J2405; J7030; Q9967

== ENCOUNTER 2018-06-11 09:14 | Day surgery (SDC) | payer MEDICAID ==
[2018-05-28 12:37] VITALS: BMI 38.4
--- NOTE | 2018-06-01 01:41 | CP.PCM.HP ---
History of Present Illness - History of Present Illness History of Present Illness: 27 y/o AA female with PMHx of chronic iron deficiency and sickle cell trait presents to ED with lower abdominal pain and fever. Patient was evaluated at [facility] where she was diagnosed with PID. Patient then transferred to [facility] for further management. Patient reports lower abdominal pain that started on 05/15/18 and progressively worsened over next 2 weeks. Patient also had associated nausea and 1 x day fever. LMP 05/15/18 and has been continuous since then. Patient is sexually active with new sexual partner for last 6 months. Pt tested positive for Chlamydia 2 months ago which was treated with Abx. She reports using contraception inconsistently. As per patient she also receives iron transfusion weekly since age 15 for chronic anemia. Denies any headache, dizziness, diarrhea, vomiting, dysuria, CP or SOB. PMHx: Sickle cell trait PSHx: Tonsillectomy 2011 Allergies: Denies F/H: DM - grandmother Social Hx: Denies tobacco, drug use, social alcohol Medications: None PGyn Hx: H/O + chlamydia 03/24 treated with Abx ED course: CT abdomen: There are at least 2 peripherally enhancing (ring-like) foci within the right aspect of the pelvis likely within the right adnexal region measuring approximately 3.1 x 2.9 and 2.2 x 1.5 cm with surrounding free fluid extending into the cul de sac and extending into the right to the left side seroma partially surrounding the posterior margin of the left adnexal as well. Past Patient History - Infectious Disease Hx of Infectious Diseases: None - Tetanus Immunizations Tetanus Immunization: Unknown - Past Social History Smoking Status: Never Smoked - CARDIAC Hx Pacemaker: No - PULMONARY Hx Respiratory Disorders: No - NEUROLOGICAL Hx Paralysis: No - HEENT Hx HEENT Problems: No - RENAL Hx Chronic Kidney Disease: No - ENDOCRINE/METABOLIC Hx Endocrine Disorders: No - HEMATOLOGICAL/ONCOLOGICAL Hx Anemia: Yes - INTEGUMENTARY Hx Dermatological Problems: No - MUSCULOSKELETAL/RHEUMATOLOGICAL Hx Musculoskeletal Disorders: No - GASTROINTESTINAL Hx Gastrointestinal Disorders: No - GENITOURINARY/GYNECOLOGICAL Hx Genitourinary Disorders: No - PSYCHIATRIC Hx Emotional Abuse: No Hx Physical Abuse: No Hx Substance Use: No - SURGICAL HISTORY Hx Tonsillectomy: Yes - ANESTHESIA Hx Anesthesia Reactions: No Hx Malignant Hyperthermia: No Meds Allergies/Adverse Reactions: Allergies Allergy/AdvReac Type Severity Reaction Status Date / Time No Known Allergies Allergy Verified 05/31/18 08:59
[2018-06-11 09:58] LABS: BASO # 0.01 K/mm3 (0.0-2.0); BASO % 0.1 % (0.0-3.0); EOS # 0.1 (0.0-0.7); EOS % 1.5 % (1.5-5.0); GRAN # 5.24 (1.4-6.5); GRAN % 61.1 % (50.0-68.0); LYMPH # 2.9 (1.2-3.4); LYMPH % 33.5 % (22.0-35.0); MEAN CELL VOLUME 76.6 fl (80.0-105.0); MEAN CORPUSCULAR HEMOGLOBIN 23.4 pg (25.0-35.0); MEAN CORPUSCULAR HGB CONC 30.5 g/dl (31.0-37.0); MEAN PLATELET VOLUME 8.2 fl (7.0-11.0); MONO # 0.3 (0.1-0.6); MONO % 3.8 % (1.0-6.0); RBC 3.85 10^6/uL (3.5-6.1); RED CELL DISTRIBUTION WIDTH 26.5 % (11.5-14.5); WHITE BLOOD COUNT 8.6 10^3/ul (4.5-11.0)
[2018-06-11 10:07] LABS: INR 1.19; PROTHROMBIN TIME 13.7 SECONDS (9.4-12.5)
[2018-06-11 10:08] LABS: BLOOD UREA NITROGEN 4 mg/dL (7-21); CALCIUM 9.6 mg/dL (8.4-10.5); GFR NON-AFRICAN AMERICAN > 60
[2018-06-11 10:09] VITALS: RESP 18
[2018-06-11] MEDS ORDERED: Lidocaine 2% PF (10 ml) Amp ONE (12:14)
[2018-06-11] MEDS ORDERED: Midazolam 2 MG/2 ML VIAL ONE ×3 (12:20→12:43)
[2018-06-11] MEDS ORDERED: Oxycodone/Acetaminophen 5/325 mg Tab PO PRN (13:13)
[2018-06-11] MEDS ORDERED: Sodium Chloride 0.45% 1,000 ML IV SCH (13:15)
[2018-06-11 14:07] VITALS: BP 122/81; PULSE 62; TEMP 98.6; O2SAT 99
--- NOTE | 2018-06-11 14:21 | VASCULAR ---
PROCEDURE: Ultrasound and fluoroscopic right internal jugular venous access port. CLINICAL HISTORY: Cell trait. Frequent iron infusions and blood transfusions. Limited IV access, needs venous port PHYSICIAN(S): Iraj Guidry M.D. TECHNIQUE: The relative risks and indications of the procedure were explained to the patient and consent obtained. The patient was placed supine on the arteriogram table and the right neck and chest prepped and draped in the usual sterile fashion. Conscious sedation monitoring was provided throughout the procedure by a nurse. Antibiotics were given prior to the procedure. Under direct ultrasound guidance, the internal jugular vein was punctured with a micro-puncture set. A 0.035 angled Glidewire was advanced into the IVC. A 4 cm incision was made below the right clavicle and the pocket blunted dissected. A 8 Thai single-lumen catheter, 21 cm long, was advanced to the SVC/RA junction. The catheter was trimmed and attached to the port. The port aspirates and injects easily. The port was placed in the pocket and closed in 2 layers. The patient tolerated the procedure well. IMPRESSION: Ultrasound and fluoroscopically placed right internal jugular venous access port.
== END 2018-06-11 15:20 | disposition home or self-care (01) ==
LOC: SDS 09:14
PROVIDERS: ATTEND Radiology Vascular & Interventional Radiology
DX: D50.9 Iron deficiency anemia, unspecified (principal)
CPT/HCPCS: 36415; 36561; 76937; 77001; 80048; 84703; 85025; 85610; 85730; 93571; 99152; 99153; C1769; C1788; J0690; J1644; J2250; J2405; J3010; J7030

== ENCOUNTER 2018-06-16 08:47 | Emergency (ER) | payer OTHER, MEDICAID ==
[2018-06-16 08:48] VITALS: BMI 38.4
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
[2018-06-16 09:29] VITALS: TEMP 98.1; O2SAT 100
[2018-06-16 10:03] LABS: BASO # 0.01 K/mm3 (0.0-2.0); BASO % 0.1 % (0.0-3.0); EOS # 0.2 (0.0-0.7); EOS % 2.4 % (1.5-5.0); GRAN # 6.79 (1.4-6.5); GRAN % 69.8 % (50.0-68.0); HEMOGLOBIN 9.7 g/dL (12.0-16.0); LYMPH # 2.3 (1.2-3.4); LYMPH % 23.7 % (22.0-35.0); MEAN CELL VOLUME 78.2 fl (80.0-105.0); MEAN CORPUSCULAR HGB CONC 30.7 g/dl (31.0-37.0); MEAN PLATELET VOLUME 8.9 fl (7.0-11.0); MONO # 0.4 (0.1-0.6); PLATELET COUNT 460 10^3/uL (120.0-450.0); RBC 4.04 10^6/uL (3.5-6.1); WHITE BLOOD COUNT 9.7 10^3/ul (4.5-11.0)
[2018-06-16 10:15] VITALS: RESP 18
[2018-06-16 10:21] LABS: ALBUMIN 4.1 g/dL (3.0-4.8); ALT/SGPT 20 U/L (7-56); AST/SGOT 28 U/L (14-36); BLOOD UREA NITROGEN 6 mg/dL (7-21); CALCIUM 9.6 mg/dL (8.4-10.5); GFR NON-AFRICAN AMERICAN > 60
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
[2018-06-16 11:06] VITALS: BP 127/70; PULSE 72
--- NOTE | 2018-06-16 11:17 | RAD ---
Date of service: 06/16/2018 HISTORY: s/p port placement COMPARISON: None. TECHNIQUE: Chest PA and lateral FINDINGS: LUNGS: No active pulmonary disease. PLEURA: No significant pleural effusion identified. No pneumothorax apparent. CARDIOVASCULAR: No radiographic findings to suggest acute or significant cardiovascular disease. Venous access catheter in satisfactory position. OSSEOUS STRUCTURES: No significant abnormalities. VISUALIZED UPPER ABDOMEN: Normal. OTHER FINDINGS: None. IMPRESSION: No active disease.
== END 2018-06-16 11:15 | disposition home or self-care (01) ==
LOC: ED 08:47
DX: M54.9 Dorsalgia, unspecified (principal); V43.52XA Car driver injured in collision with other type car in traffic accident, initial encounter; Y92.410 Unspecified street and highway as the place of occurrence of the external cause; D57.3 Sickle-cell trait

== ENCOUNTER 2018-07-02 00:29 | Inpatient (IN) | payer MEDICAID, OTHER ==
--- NOTE | 2018-07-02 01:21 | ED PDOC ---
Arrival/HPI - General Chief Complaint: Wound Check Time Seen by Provider: 07/02/18 01:04 Historian: Patient - History of Present Illness Narrative History of Present Illness (Text): 07/02/18 01:17 27 year old female, whose past medical history includes chronic anemia, presents to the emergency department with infection to surgical wound of right chest wall. Patient's wound is at site of catheter port insertion. Patient states she is getting purulent discharge from the area with some tenderness to the area surrounding it. Patient states she was recently started on oral antibiotics but symptoms did not improve. Patient informs that the wound has since opened up. Patient denies any fever, chills, abdominal pain, nausea, vomiting, diarrhea, or any other complaints. Time/Duration: Prior to Arrival, > week Symptom Onset: Gradual Past Medical History - Provider Review Nursing Documentation Reviewed: Yes - Infectious Disease Hx of Infectious Diseases: None - Tetanus Immunization Tetanus Immunization: Unknown - Cardiac Hx Cardiac Disorders: No Hx Pacemaker: No - Pulmonary Hx Respiratory Disorders: No - Neurological Hx Paralysis: No - HEENT Hx HEENT Disorder: No - Renal Hx Renal Disorder: No - Endocrine/Metabolic Hx Endocrine Disorders: No - Hematological/Oncological Hx Blood Transfusions: Yes ( 2 WEEKS) Hx Blood Transfusion Reaction: No - Integumentary Hx Dermatological Disorder: No - Musculoskeletal/Rheumatological Hx Musculoskeletal Disorders: No - Gastrointestinal Hx Gastrointestinal Disorders: No - Genitourinary/Gynecological Hx Genitourinary Disorders: No - Psychiatric Hx Emotional Abuse: No Hx Physical Abuse: No Hx Substance Use: No - Surgical History Hx Tonsillectomy: Yes - Anesthesia Hx Anesthesia Reactions: No Hx Malignant Hyperthermia: No - Suicidal Assessment Feels Threatened In Home Enviroment: No Family/Social History - Physician Review Nursing Documentation Reviewed: Yes Family/Social History: No Known Family HX Smoking Status: Never Smoked Hx Alcohol Use: No Hx Substance Use: No Hx Substance Use Treatment: No Allergies/Home Meds Allergies/Adverse Reactions: Allergies No Known Allergies Allergy (Verified 06/16/18 09:34) Review of Systems - Physician Review All systems were reviewed & negative as marked: Yes - Review of Systems Constitutional: absent: Fevers, Night Sweats Cardiovascular: Other (infected wound to chest) Gastrointestinal: absent: Abdominal Pain, Diarrhea, Nausea, Vomiting Physical Exam Vital Signs Reviewed: Yes Vital Signs Temp Pulse Resp BP Pulse Ox 07/02/18 00:55 98.1 F 82 19 120/81 100 Temperature: Afebrile Blood Pressure: Normal Pulse: Regular Respiratory Rate: Normal Appearance: Positive for: Well-Appearing, Non-Toxic, Comfortable Pain Distress: None Mental Status: Positive for: Alert and Oriented X 3 - Systems Exam Head: Present: Atraumatic, Normocephalic Pupils: Present: PERRL Extroacular Muscles: Present: EOMI Conjunctiva: Present: Normal Mouth: Present: Moist Mucous Membranes Neck: Present: Normal Range of Motion Respiratory/Chest: Present: Clear to Auscultation, Good Air Exchange, Other (Dehiscence of the surgical wound at right upper chest above the port with purulent discharge). No: Respiratory Distress, Accessory Muscle Use Cardiovascular: Present: Regular Rate and Rhythm, Normal S1, S2. No: Murmurs Abdomen: No: Tenderness, Distention, Peritoneal Signs Upper Extremity: Present: Normal Inspection. No: Cyanosis, Edema Lower Extremity: Present: Normal Inspection. No: Edema Neurological: Present: GCS=15, CN II-XII Intact, Speech Normal, Motor Func Grossly Intact Psychiatric: Present: Alert, Oriented x 3, Normal Insight, Normal Concentration Medical Decision Making ED Course and Treatment: 07/02/18 01:27 Impression: 27 year old female presents with infection at site of catheter port insertion. Plan: -- Labs -- Reassess and disposition Prior Visits: Notes and results from previous visits were reviewed. Progress Notes: 07/02/18 03:23 Spoke to medical technical writer and Dr. Hdz. Patient will be accepted under hospitalist service. - Scribe Statement The provider has reviewed the documentation as recorded by the Jerry Hoang Provider Scribe Attestation: All medical record entries made by the Jerry were at my direction and personally dictated by me. I have reviewed the chart and agree that the record accurately reflects my personal performance of the history, physical exam, medical decision making, and the department course for this patient. I have also personally directed, reviewed, and agree with the discharge instructions and disposition. Disposition/Present on Arrival - Present on Arrival Any Indicators Present on Arrival: No History of DVT/PE: No History of Uncontrolled Diabetes: No Urinary Catheter: No History of Decub. Ulcer: No History Surgical Site Infection Following: None - Disposition Have Diagnosis and Disposition been Completed?: Yes Diagnosis: Port or reservoir infection, Cellulitis, Wound dehiscence Disposition: HOSPITALIZED Disposition Time: 03:22 Patient Plan: Observation Patient Problems: Current Active Problems Problem Status Onset Cellulitis Acute Port or reservoir infection Acute Wound dehiscence Acute Condition: STABLE Discharge Instructions (ExitCare): Cellulitis (ED) Forms: [employer] (Yi)
[2018-07-02 03:01] LABS: HEMOGLOBIN 10.6 g/dL (12.0-16.0); MEAN CORPUSCULAR HEMOGLOBIN 25.6 pg (25.0-35.0); MEAN CORPUSCULAR HGB CONC 31.5 g/dl (31.0-37.0); MEAN PLATELET VOLUME 9.1 fl (7.0-11.0); RBC 4.14 10^6/uL (3.5-6.1); RED CELL DISTRIBUTION WIDTH 23.5 % (11.5-14.5); WHITE BLOOD COUNT 10.9 10^3/uL (4.5-11.0)
[2018-07-02 03:05] LABS: ALBUMIN 4.2 g/dL (3.0-4.8); ALT/SGPT 28 U/L (7-56); AST/SGOT 52 U/L (14-36); BLOOD UREA NITROGEN 7 mg/dL (7-21); CALCIUM 9.3 mg/dL (8.4-10.5); GFR NON-AFRICAN AMERICAN > 60
[2018-07-02 03:06] LABS: MEAN CELL VOLUME 81.4 fl (80.0-105.0)
[2018-07-02] MEDS ORDERED: Piperacillin/Tazobact 3.375 gm 100 ML IV STA (03:14)
[2018-07-02] MEDS ORDERED: Vancomycin 1gm in NS 250ml 1 GM/250 ML BAG IVPB STA (03:19)
[2018-07-02] MEDS: Piperacillin/Tazobact 3.375 gm 100 ML IVPB SCH ×4 (05:12→23:57)
[2018-07-02] MEDS: Vancomycin 1gm in NS 250ml 1 GM/250 ML BAG IVPB SCH ×2 (05:19→16:00)
--- NOTE | 2018-07-02 06:43 | CP.PCM.HP ---
<Alec Hahn - Last Filed: 07/02/18 06:48> History of Present Illness - History of Present Illness History of Present Illness: Alec Hahn DO PGY1 Internal Medicine [employer] [employer] - Medicine H&P CC: Questionable Port site infx 27F w/ a PMH of sickle cell trait, Fe Def Anemia on Fe transfusion QTues s/p R subclavian Port placement , Recently Dx PID (05/2018), presented to [facility] ED on 07/02 w/ complaints that her port site may be infected. She stated that she got her port placed on 06/11/2018 She reported shortly after it was placed; the incision opened up, and she sought out her Heme/Onc (Palathinkal?) who works in Dr. Peterson office. Pt. was started on PO ABX therapy, however still reports that it is open. She denies any erythema, surrounding the port site, any recent fevers, chills, te nderness at the site. She does report some soreness with movement of her R arm. Denies any pus or p urulent discharge from site. Denies any signs of PID/UTI. No dizziness, chest pain, palpitations, SOB. She showed her mother who was concerned, and brought her to the ER. 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 Admission - Present on Admission Any Indicators Present on Admission: No Review of Systems - Review of Systems All systems: reviewed and no additional remarkable complaints except Review of Systems: as PER HPI Past Patient History - Infectious Disease Hx of Infectious Diseases: None - Tetanus Immunizations Tetanus Immunization: Unknown - Past Social History Smoking Status: Never Smoked - CARDIAC Hx Cardiac Disorders: No Hx Pacemaker: No - PULMONARY Hx Respiratory Disorders: No - NEUROLOGICAL Hx Paralysis: No - HEENT Hx HEENT Problems: No - RENAL Hx Chronic Kidney Disease: No - ENDOCRINE/METABOLIC Hx Endocrine Disorders: No - HEMATOLOGICAL/ONCOLOGICAL Hx Blood Transfusions: Yes ( 2 WEEKS) Hx Blood Transfusion Reaction: No - INTEGUMENTARY Hx Dermatological Problems: No - MUSCULOSKELETAL/RHEUMATOLOGICAL Hx Musculoskeletal Disorders: No - GASTROINTESTINAL Hx Gastrointestinal Disorders: No - GENITOURINARY/GYNECOLOGICAL Hx Genitourinary Disorders: No - PSYCHIATRIC Hx Emotional Abuse: No Hx Physical Abuse: No Hx Substance Use: No - SURGICAL HISTORY Hx Tonsillectomy: Yes - ANESTHESIA Hx Anesthesia Reactions: No Hx Malignant Hyperthermia: No Meds Allergies/Adverse Reactions: Allergies Allergy/AdvReac Type Severity Reaction Status Date / Time No Known Allergies Allergy Verified 06/16/18 09:34 Physical Exam - Constitutional Appears: Well, Non-toxic, No Acute Distress - Head Exam Head Exam: ATRAUMATIC, NORMAL INSPECTION, NORMOCEPHALIC - Eye Exam Eye Exam: EOMI, PERRL. absent: Scleral icterus - ENT Exam ENT Exam: Mucous Membranes Moist, Normal Exam - Respiratory Exam Respiratory Exam: NORMAL BREATHING PATTERN. absent: Rales, Rhonchi, Wheezes Additional comments: R upper chest wall incision Non tender Non erythematous No discharge appreciated Good grannulation tissue Open incision measuring 5.5x1.25cm - Cardiovascular Exam Cardiovascular Exam: RRR, +S1, +S2, Systolic Murmur - GI/Abdominal Exam GI & Abdominal Exam: Soft. absent: Tenderness - Extremities Exam Extremities exam: Positive for: pedal pulses present. Negative for: pedal edema, tenderness - Back Exam Back exam: absent: CVA tenderness (L), CVA tenderness (R) - Neurological Exam Neurological exam: CN II-XII Intact, Oriented x3 - Skin Skin Exam: Dry, Intact, Normal Color, Warm Results - Vital Signs Recent Vital Signs: Last Vital Signs Temp 98.1 F 07/02/18 00:55 Pulse 69 07/02/18 05:38 Resp 16 07/02/18 05:38 BP 124/72 07/02/18 05:38 Pulse Ox 100 07/02/18 05:38 - Labs Result Diagrams: 07/02/18 02:25 07/02/18 02:25 Labs: Laboratory Results - last 24 hr 07/02/18 07/02/18 02:25 02:25 WBC 10.9 RBC 4.14 Hgb 10.6 L Hct 33.7 L MCV 81.4 D MCH 25.6 MCHC 31.5 RDW 23.5 H Plt Count 360 MPV 9.1 Sodium 137 Potassium 3.9 Chloride 105 Carbon Dioxide 23 Anion Gap 13 BUN 7 Creatinine 0.6 L Est GFR ( Amer) > 60 Est GFR (Non-Af Amer) > 60 Random Glucose 100 Calcium 9.3 Total Bilirubin 0.2 AST 52 H D ALT 28 Alkaline Phosphatase 99 Total Protein 8.6 H Albumin 4.2 Globulin 4.4 Albumin/Globulin Ratio 1.0 L Assessment & Plan - Assessment and Plan (Free Text) Assessment: 27F w/ a PMH of sickle cell trait, Fe Def Anemia on Fe transfusion QTues s/p R subclavian Port placement , Recently Dx PID (05/2018), presented to [facility] ED on 07/02 w/ complaints that her port site may be infected. Plan: Surgical Site infection/ Cellulitis: Findings are most likely 2/2 premature opening of surgical site Findings are not suspicious of cellulitis/ infection at time of evaluation No white count, afebrile, non toxic BCx, Wound Cx pending Empiric Vanc/Zosyn rIaj Guidry consulted Fe Def Anemia: On transfusions QTues Ferritin Fe/TIBC Transferrin Sickle Cell Trait Has not required transfusion since child [place] Recently Dx PID: No s/s active infx at this time Patient was seen, examined, discussed w/ attending Dr. Andreina Hahn DO PGY1 Internal Medicine [employer] - Date & Time Date: 07/02/18 Time: 07:00 <Pilar Hdz - Last Filed: 07/02/18 07:22> Results - Vital Signs Recent Vital Signs: Last Vital Signs Temp 98.1 F 07/02/18 00:55 Pulse 69 07/02/18 05:38 Resp 16 07/02/18 05:38 BP 124/72 07/02/18 05:38 Pulse Ox 100 07/02/18 05:38 - Labs Result Diagrams: 07/02/18 02:25 07/02/18 02:25 Labs: Laboratory Results - last 24 hr 07/02/18 07/02/18 02:25 02:25 WBC 10.9 RBC 4.14 Hgb 10.6 L Hct 33.7 L MCV 81.4 D MCH 25.6 MCHC 31.5 RDW 23.5 H Plt Count 360 MPV 9.1 Sodium 137 Potassium 3.9 Chloride 105 Carbon Dioxide 23 Anion Gap 13 BUN 7 Creatinine 0.6 L Est GFR ( Amer) > 60 Est GFR (Non-Af Amer) > 60 Random Glucose 100 Calcium 9.3 Total Bilirubin 0.2 AST 52 H D ALT 28 Alkaline Phosphatase 99 Total Protein 8.6 H Albumin 4.2 Globulin 4.4 Albumin/Globulin Ratio 1.0 L Attending/Attestation - Attestation I have personally seen and examined this patient.: Yes I have fully participated in the care of the patient.: Yes I have reviewed all pertinent clinical information: Yes Notes (Text): 07/02/18 07:22 Patient was seen when she was in the ER. Agree with history,physical examination, assessment and plan.
[2018-07-02 07:59] LABS: IRON 72 ug/dL (45-180)
[2018-07-02 08:01] VITALS: BMI 37.8
[2018-07-02 08:08] LABS: % IRON SATURATION 22 % (20-55); TOTAL IRON BINDING CAPACITY 331 ug/dL (265-497)
[2018-07-02 09:00] LABS: BASO # 0.01 K/mm3 (0.0-2.0); BASO % 0.1 % (0.0-3.0); EOS # 0.1 (0.0-0.7); EOS % 1.3 % (1.5-5.0); GRAN # 4.65 (1.4-6.5); GRAN % 60.3 % (50.0-68.0); HEMOGLOBIN 10.2 g/dL (12.0-16.0); LYMPH # 2.6 (1.2-3.4); MEAN CELL VOLUME 82.4 fl (80.0-105.0); MEAN CORPUSCULAR HGB CONC 30.4 g/dl (31.0-37.0); MONO # 0.3 (0.1-0.6); MONO % 4.3 % (1.0-6.0); RBC 4.08 10^6/uL (3.5-6.1); RED CELL DISTRIBUTION WIDTH 23.3 % (11.5-14.5); WHITE BLOOD COUNT 7.7 10^3/uL (4.5-11.0)
[2018-07-02 09:14] LABS: ALBUMIN 3.8 g/dL (3.0-4.8); ALT/SGPT 22 U/L (7-56); AST/SGOT 27 U/L (14-36); BLOOD UREA NITROGEN 5 mg/dL (7-21); CALCIUM 9.1 mg/dL (8.4-10.5); GFR NON-AFRICAN AMERICAN > 60
[2018-07-02] MEDS: Enoxaparin 40 mg Syringe SC SCH (10:15)
[2018-07-02 12:55] LABS: URINE BILIRUBIN NEGATIVE (NEGATIVE); URINE BLOOD NEGATIVE (NEGATIVE); URINE GLUCOSE (UA) NEGATIVE (NEGATIVE); URINE LEUKOCYTE ESTERASE NEGATIVE Leu/uL (NEGATIVE); URINE PROTEIN TRACE mg/dL (<30 mg/dL); URINE UROBILINOGEN 0.2 E.U./dL (<1 E.U./dL)
[2018-07-02 12:56] LABS: URINE APPEARANCE CLEAR (CLEAR); URINE COLOR DARK YELLOW (YELLOW)
[2018-07-02 12:57] LABS: HCG,QUALITATIVE URINE NEGATIVE (NEGATIVE)
[2018-07-02 13:04] LABS: URINE BACTERIA MANY (NEG)
[2018-07-02] MEDS ORDERED: Midazolam 2 MG/2 ML VIAL ONE ×2 (14:22→14:41)
[2018-07-02] MEDS ORDERED: Lidocaine 2% Inj (20ml) ONE (14:22)
--- NOTE | 2018-07-02 15:38 | CP.PCM.CON ---
History of Present Illness - History of Present Illness History of Present Illness: Infectious Disease Consultation: July 02, 2018 27F w/ a PMH of sickle cell trait, Iron Def Anemia on weekly Iron transfusion QTues s/p R subclavian Port placement , Recently Dx PID (05/2018), presented to [facility] ED on 07/02 w/ complaints that her port site may be infected. She stated that she got her port placed on 06/11/2018. She reported shortly after it was placed; the incision opened up, and she sought out her Heme/Onc (Druck/Palathingal). Pt. was started on PO ABX therapy, however still reports that it is open. She denies any erythema, surrounding the port site, any recent fevers, chills, tenderness at the site. She does report some soreness with movement of her R arm. Denies any pus or purulent discharge from site. Denies any signs of PID/UTI. No dizziness, chest pain, palpitations, SOB. She showed her mother who was concerned, and brought her to the ER. Seen by Dr. Iraj Guidry who revised port and sutured wound PMHx: Sickle cell trait, Iron Deficiency Anemia PSHx: Port placement as listed above Allergies: NKDA Social Hx: Social EtOH No tobacco or illicit drug use Active Medications Enoxaparin Sodium (Lovenox) 40 mg SC DAILY NIMO; Protocol Last Admin: 07/02/18 10:15 Dose: 40 mg Vancomycin HCl (Vancomycin 1gm) 1 gm in 250 mls @ 167 mls/hr IVPB Q12H NIMO; Protocol Last Admin: 07/02/18 05:19 Dose: 167 mls/hr Piperacillin Sod/Tazobactam Sod (Zosyn 3.375 In Ns 100ml) 100 mls @ 25 mls/hr IVPB Q8 NIMO; Protocol Stop: 07/02/18 17:59 Pantoprazole Sodium (Protonix Ec Tab) 40 mg PO 0600 NIMO Family Hx: Sickle cell trait in mother and brothers ROS: No fevers, chills, nausea, vomiting, diarrhea, headaches, dizziness, chest pain, abdominal pain, melena, hematuria, hematemesis, hematochezia, depression, anxiety. Past Patient History - Infectious Disease Hx of Infectious Diseases: None - Tetanus Immunizations Tetanus Immunization: Unknown - Past Social History Smoking Status: Never Smoked - CARDIAC Hx Cardiac Disorders: No Hx Pacemaker: No - PULMONARY Hx Respiratory Disorders: No - NEUROLOGICAL Hx Neurological Disorder: No - HEENT Hx HEENT Problems: No - RENAL Hx Chronic Kidney Disease: No - ENDOCRINE/METABOLIC Hx Endocrine Disorders: No - HEMATOLOGICAL/ONCOLOGICAL Hx Anemia: Yes - INTEGUMENTARY Hx Dermatological Problems: No - MUSCULOSKELETAL/RHEUMATOLOGICAL Hx Falls: Yes - GASTROINTESTINAL Hx Gastrointestinal Disorders: No - GENITOURINARY/GYNECOLOGICAL Hx Genitourinary Disorders: No - PSYCHIATRIC Hx Substance Use: No - SURGICAL HISTORY Hx Surgeries: Yes - ANESTHESIA Hx Anesthesia Reactions: No Hx Malignant Hyperthermia: No Meds Allergies/Adverse Reactions: Allergies Allergy/AdvReac Type Severity Reaction Status Date / Time No Known Allergies Allergy Verified 06/16/18 09:34 - Medications Medications: Current Medications Enoxaparin Sodium (Lovenox) 40 mg SC DAILY NIMO; Protocol Last Admin: 07/02/18 10:15 Dose: 40 mg Vancomycin HCl (Vancomycin 1gm) 1 gm in 250 mls @ 167 mls/hr IVPB Q12H NIMO; Protocol Last Admin: 07/02/18 05:19 Dose: 167 mls/hr Piperacillin Sod/Tazobactam Sod (Zosyn 3.375 In Ns 100ml) 100 mls @ 25 mls/hr IVPB Q8 NIMO; Protocol Stop: 07/02/18 17:59 Pantoprazole Sodium (Protonix Ec Tab) 40 mg PO 0600 NIMO Physical Exam - Constitutional Appears: Non-toxic, No Acute Distress, Chronically Ill - Head Exam Head Exam: ATRAUMATIC, NORMOCEPHALIC - Eye Exam Eye Exam: EOMI, PERRL Pupil Exam: NORMAL ACCOMODATION, PERRL - ENT Exam ENT Exam: Mucous Membranes Moist, Normal External Ear Exam, TM's Normal Bilaterally - Neck Exam Neck exam: Positive for: Full Rom, Normal Inspection - Respiratory Exam Respiratory Exam: Clear to Auscultation Bilateral, NORMAL BREATHING PATTERN. absent: Rales, Rhonchi, Wheezes - Cardiovascular Exam Cardiovascular Exam: REGULAR RHYTHM, RRR, +S1, +S2 - GI/Abdominal Exam GI & Abdominal Exam: Normal Bowel Sounds, Soft. absent: Distended, Tenderness - Extremities Exam Extremities exam: Positive for: full ROM, normal inspection - Neurological Exam Neurological exam: Alert, CN II-XII Intact, Oriented x3 - Psychiatric Exam Psychiatric exam: Normal Affect, Normal Mood - Skin Additional comments: R upper chest wall incision Non tender Non erythematous No discharge appreciated Good grannulation tissue Open incision measuring 5.5x1.25cm now closed Results - Vital Signs Recent Vital Signs: Last Vital Signs Temp 98.1 F 07/02/18 15:18 Pulse 75 07/02/18 15:18 Resp 20 07/02/18 15:18 BP 120/80 07/02/18 15:18 Pulse Ox 99 07/02/18 15:18 - Labs Result Diagrams: 07/02/18 08:35 07/02/18 08:35 Labs: Laboratory Results - last 24 hr 07/02/18 07/02/18 07/02/18 02:25 02:25 04:45 WBC 10.9 RBC 4.14 Hgb 10.6 L Hct 33.7 L MCV 81.4 D MCH 25.6 MCHC 31.5 RDW 23.5 H Plt Count 360 MPV 9.1 Gran % Lymph % (Auto) [place] % (Auto) Eos % (Auto) Baso % (Auto) Gran # Lymph # (Auto) [place] # (Auto) Eos # (Auto) Baso # (Auto) Sodium 137 Potassium 3.9 Chloride 105 Carbon Dioxide 23 Anion Gap 13 BUN 7 Creatinine 0.6 L Est GFR ( Amer) > 60 Est GFR (Non-Af Amer) > 60 Random Glucose 100 Calcium 9.3 Phosphorus Magnesium Iron 72 TIBC 331 % Saturation 22 Ferritin Total Bilirubin 0.2 AST 52 H D ALT 28 Alkaline Phosphatase 99 Total Protein 8.6 H Albumin 4.2 Globulin 4.4 Albumin/Globulin Ratio 1.0 L Urine Color Urine Appearance Urine pH Ur Specific [place] Urine Protein Urine Glucose (UA) Urine Ketones Urine Blood Urine Nitrate Urine Bilirubin Urine Urobilinogen Ur Leukocyte Esterase Urine RBC Urine WBC Ur Epithelial Cells Urine Bacteria Urine Other Urine HCG, Qual 07/02/18 07/02/18 07/02/18 04:45 08:35 08:35 WBC 7.7 D RBC 4.08 Hgb 10.2 L Hct 33.6 L MCV 82.4 MCH 25.0 MCHC 30.4 L RDW 23.3 H Plt Count 323 MPV 9.0 Gran % 60.3 Lymph % (Auto) 34.0 [place] % (Auto) 4.3 Eos % (Auto) 1.3 L Baso % (Auto) 0.1 Gran # 4.65 Lymph # (Auto) 2.6 [place] # (Auto) 0.3 Eos # (Auto) 0.1 Baso # (Auto) 0.01 Sodium 137 Potassium 4.1 Chloride 107 Carbon Dioxide 23 Anion Gap 10 BUN 5 L Creatinine 0.6 L Est GFR ( Amer) > 60 Est GFR (Non-Af Amer) > 60 Random Glucose 90 Calcium 9.1 Phosphorus 4.1 Magnesium 1.8 Iron TIBC % Saturation Ferritin 246.0 Total Bilirubin 0.2 AST 27 ALT 22 Alkaline Phosphatase 81 Total Protein 7.8 Albumin 3.8 Globulin 4.0 Albumin/Globulin Ratio 1.0 L Urine Color Urine Appearance Urine pH Ur Specific [place] Urine Protein Urine Glucose (UA) Urine Ketones Urine Blood Urine Nitrate Urine Bilirubin Urine Urobilinogen Ur Leukocyte Esterase Urine RBC Urine WBC Ur Epithelial Cells Urine Bacteria Urine Other Urine HCG, Qual 07/02/18 12:30 WBC RBC Hgb Hct MCV MCH MCHC RDW Plt Count MPV Gran % Lymph % (Auto) [place] % (Auto) Eos % (Auto) Baso % (Auto) Gran # Lymph # (Auto) [place] # (Auto) Eos # (Auto) Baso # (Auto) Sodium Potassium Chloride Carbon Dioxide Anion Gap BUN Creatinine Est GFR ( Amer) Est GFR (Non-Af Amer) Random Glucose Calcium Phosphorus Magnesium Iron TIBC % Saturation Ferritin Total Bilirubin AST ALT Alkaline Phosphatase Total Protein Albumin Globulin Albumin/Globulin Ratio Urine Color Dark yellow Urine Appearance Clear Urine pH 6.0 Ur Specific [place] >= 1.030 Urine Protein Trace H Urine Glucose (UA) Negative Urine Ketones Negative Urine Blood Negative Urine Nitrate Negative Urine Bilirubin Negative Urine Urobilinogen 0.2 Ur Leukocyte Esterase Negative Urine RBC 1 - 3 Urine WBC 2 - 5 Ur Epithelial Cells 6 - 8 Urine Bacteria Many Urine Other Uyeast Urine HCG, Qual Negative Assessment & Plan - Assessment and Plan (Free Text) Assessment: 27 yo AA female with sickle cell trait and Iron deficiency anemia presented with recent Port placement in right upper chest that had dehissence of the incision site but no signs of gross infection. No other symptomology. Supportive care. Started on Zosyn IV and Vancomycin IV. If cultures of site are negative, can consider oral medications again. Thank you for allowing me to participate in the care of the patient, we will follow with you.
--- NOTE | 2018-07-02 17:31 | VASCULAR ---
Date of service: 07/02/2018 PROCEDURE: HISTORY: PORT WOUND-CLEAN AND RECLOSE COMPARISON: TECHNIQUE: FINDINGS: IMPRESSION: The right Port incision was cleaned and closed in 2 layers. Interrupted sutures were utilized. If drainage continues or wound does not heal, the port will be removed
[2018-07-03] MEDS: Vancomycin 1gm in NS 250ml 1 GM/250 ML BAG IVPB SCH ×2 (04:09→17:58)
[2018-07-03] MEDS: Pantoprazole 40 mg EC Tab PO SCH (05:03)
[2018-07-03] MEDS: Piperacillin/Tazobact 3.375 gm 100 ML IVPB SCH ×3 (06:29→21:11)
[2018-07-03 07:51] LABS: BASO # 0.01 K/mm3 (0.0-2.0); BASO % 0.1 % (0.0-3.0); EOS # 0.2 (0.0-0.7); EOS % 2.7 % (1.5-5.0); GRAN # 4.27 (1.4-6.5); GRAN % 58.1 % (50.0-68.0); HEMOGLOBIN 10.5 g/dL (12.0-16.0); LYMPH # 2.5 (1.2-3.4); LYMPH % 34.6 % (22.0-35.0); MEAN CORPUSCULAR HEMOGLOBIN 25.1 pg (25.0-35.0); MEAN CORPUSCULAR HGB CONC 30.3 g/dl (31.0-37.0); MEAN PLATELET VOLUME 9.2 fl (7.0-11.0); MONO # 0.3 (0.1-0.6); MONO % 4.5 % (1.0-6.0); RBC 4.18 10^6/uL (3.5-6.1); RED CELL DISTRIBUTION WIDTH 23.1 % (11.5-14.5); WHITE BLOOD COUNT 7.4 10^3/uL (4.5-11.0)
[2018-07-03 08:41] VITALS: O2SAT 100
[2018-07-03 08:47] LABS: ALBUMIN 3.6 g/dL (3.0-4.8); ALT/SGPT 23 U/L (7-56); AST/SGOT 61 U/L (14-36); BLOOD UREA NITROGEN 8 mg/dL (7-21); CALCIUM 8.9 mg/dL (8.4-10.5); GFR NON-AFRICAN AMERICAN > 60
[2018-07-03] MEDS: Enoxaparin 40 mg Syringe SC SCH (10:23)
--- NOTE | 2018-07-03 15:54 | CP.PCM.PN ---
<Elijah Kay - Last Filed: 07/03/18 16:04> Subjective - Date & Time of Evaluation Date of Evaluation: 07/03/18 Time of Evaluation: 07:00 - Subjective Subjective: pt seen and examined. Pt denies fevers, chills, redness, or throbbing pain. Objective - Vital Signs/Intake and Output Vital Signs (last 24 hours): Temp Pulse Resp BP Pulse Ox 98.1 F 76 18 119/53 L 100 07/03/18 14:00 07/03/18 14:00 07/03/18 14:00 07/03/18 14:00 07/03/18 14:00 - Medications Medications: Current Medications Enoxaparin Sodium (Lovenox) 40 mg SC DAILY NIMO; Protocol Last Admin: 07/03/18 10:23 Dose: Not Given Vancomycin HCl (Vancomycin 1gm) 1 gm in 250 mls @ 167 mls/hr IVPB Q12H NIMO; Protocol Last Admin: 07/03/18 04:09 Dose: 167 mls/hr Piperacillin Sod/Tazobactam Sod (Zosyn 3.375 In Ns 100ml) 100 mls @ 25 mls/hr IVPB Q8 NIMO; Protocol Last Admin: 07/03/18 14:38 Dose: 25 mls/hr Pantoprazole Sodium (Protonix Ec Tab) 40 mg PO 0600 NIMO Last Admin: 07/03/18 05:03 Dose: 40 mg - Labs Labs: 07/03/18 07:00 07/03/18 06:45 - Constitutional Appears: Non-toxic, No Acute Distress - Head Exam Head Exam: ATRAUMATIC, NORMAL INSPECTION, NORMOCEPHALIC - Eye Exam Eye Exam: EOMI - ENT Exam ENT Exam: Mucous Membranes Moist - Neck Exam Neck Exam: Full ROM, Normal Inspection - Respiratory Exam Respiratory Exam: Clear to Ausculation Bilateral, NORMAL BREATHING PATTERN. absent: Accessory Muscle Use, Wheezes, Respiratory Distress - Cardiovascular Exam Cardiovascular Exam: RRR, +S1, +S2. absent: Diastolic murmur, Murmur - GI/Abdominal Exam GI & Abdominal Exam: Soft, Normal Bowel Sounds. absent: Tenderness - Extremities Exam Extremities Exam: Full ROM. absent: Calf Tenderness, Pedal Edema, Tenderness - Neurological Exam Neurological Exam: Alert, Awake, Oriented x3 - Psychiatric Exam Psychiatric exam: Normal Affect, Normal Mood - Skin Skin Exam: Dry, Normal Color, Warm Assessment and Plan - Assessment and Plan (Free Text) Assessment: 27F w/ a PMH of sickle cell trait, Fe Def Anemia on Fe transfusion QTues s/p R subclavian Port placement , Recently Dx PID (05/2018), presented to [facility] on 07/02 w/ complaints that her port site may be infected. Plan: Surgical Site infection/ Cellulitis - Findings are most likely 2/2 premature opening of surgical site - Findings are not suspicious of cellulitis/ infection at time of evaluation - No white count, afebrile, non toxic - Blood cultures: NGTD - Wound Cultures: pending - Vanc/Zosyn - Iraj Gudiry consulted - pt will be discharged on PO Keflex for 14 days after negative cultures Fe Def Anemia - Iron transfusions weekly - Ferritin 246 - Fe 72 - TIBC 331 Sickle Cell Trait - Has not required transfusion since child [place] Recently Dx PID - No s/s active infx at this time Pt seen, examined, assessment and plan discussed with Dr Lev Kay PGY1 <Mando Ohara - Last Filed: 07/03/18 19:03> Objective - Vital Signs/Intake and Output Vital Signs (last 24 hours): Temp Pulse Resp BP Pulse Ox 98.1 F 76 18 119/53 L 100 07/03/18 14:00 07/03/18 14:00 07/03/18 14:00 07/03/18 14:00 07/03/18 14:00 - Medications Medications: Current Medications Enoxaparin Sodium (Lovenox) 40 mg SC DAILY NIMO; Protocol Last Admin: 07/03/18 10:23 Dose: Not Given Vancomycin HCl (Vancomycin 1gm) 1 gm in 250 mls @ 167 mls/hr IVPB Q12H NIMO; Protocol Last Admin: 07/03/18 17:58 Dose: 167 mls/hr Piperacillin Sod/Tazobactam Sod (Zosyn 3.375 In Ns 100ml) 100 mls @ 25 mls/hr IVPB Q8 NIMO; Protocol Last Admin: 07/03/18 14:38 Dose: 25 mls/hr Pantoprazole Sodium (Protonix Ec Tab) 40 mg PO 0600 NIMO Last Admin: 07/03/18 05:03 Dose: 40 mg - Labs Labs: 07/03/18 07:00 07/03/18 06:45 Attending/Attestation - Attestation I have personally seen and examined this patient.: Yes I have fully participated in the care of the patient.: Yes I have reviewed all pertinent clinical information, including history, physical exam and plan: Yes Notes (Text): 07/03/18 18:59 27 year old female with past medical history of sickle cell trait, iron deficiency anemia s/p recent port placement presented with concern for port site infection. She is started on vancomycin and zosyn. She was seen by IR who cleaned and closed port site. She is pending wound and blood cultures currently negative to date. Consider d/c if remains negative 48 hrs. Anemia is stable. Mando Ohara MD Hospitalist.
--- NOTE | 2018-07-03 17:49 | CP.PCM.PN ---
Subjective - Date & Time of Evaluation Date of Evaluation: 07/03/18 Time of Evaluation: 16:15 - Subjective Subjective: Infectious Disease Follow Up: July 03, 2018 27F w/ a PMH of sickle cell trait, Iron Def Anemia on weekly Iron transfusion QTues s/p R subclavian Port placement , Recently Dx PID (05/2018), presented to [facility] ED on 07/02 w/ complaints that her port site may be infected. She stated that she got her port placed on 06/11/2018. She reported shortly after it was placed; the incision opened up, and she sought out her Heme/Onc (Druck/Palathingal). Pt. was started on PO ABX therapy, however still reports that it is open. She denies any erythema, surrounding the port site, any recent fevers, chills, tenderness at the site. She does report some soreness with movement of her R arm. Denies any pus or purulent discharge from site. Denies any signs of PID/UTI. No dizziness, chest pain, palpitations, SOB. She showed her mother who was concerned, and brought her to the ER. Seen by Dr. Iraj Guidry who revised port and sutured wound Patient wants to go home. Objective - Vital Signs/Intake and Output Vital Signs (last 24 hours): Temp Pulse Resp BP Pulse Ox 98.1 F 76 18 119/53 L 100 07/03/18 14:00 07/03/18 14:00 07/03/18 14:00 07/03/18 14:00 07/03/18 14:00 - Medications Medications: Current Medications Enoxaparin Sodium (Lovenox) 40 mg SC DAILY NIMO; Protocol Last Admin: 07/03/18 10:23 Dose: Not Given Vancomycin HCl (Vancomycin 1gm) 1 gm in 250 mls @ 167 mls/hr IVPB Q12H NIMO; Protocol Last Admin: 07/03/18 04:09 Dose: 167 mls/hr Piperacillin Sod/Tazobactam Sod (Zosyn 3.375 In Ns 100ml) 100 mls @ 25 mls/hr IVPB Q8 NIMO; Protocol Last Admin: 07/03/18 14:38 Dose: 25 mls/hr Pantoprazole Sodium (Protonix Ec Tab) 40 mg PO 0600 NIMO Last Admin: 07/03/18 05:03 Dose: 40 mg - Labs Labs: 10/27/18 07:00 07/03/18 06:45 - Constitutional Appears: Non-toxic, No Acute Distress, Chronically Ill - Head Exam Head Exam: ATRAUMATIC, NORMOCEPHALIC - Eye Exam Eye Exam: EOMI, PERRL Pupil Exam: NORMAL ACCOMODATION, PERRL - ENT Exam ENT Exam: Mucous Membranes Moist, Normal External Ear Exam, TM's Normal Bilaterally - Neck Exam Neck Exam: Full ROM, Normal Inspection - Respiratory Exam Respiratory Exam: Clear to Ausculation Bilateral, NORMAL BREATHING PATTERN. absent: Rales, Rhonchi, Wheezes - Cardiovascular Exam Cardiovascular Exam: REGULAR RHYTHM, RRR, +S1, +S2 - GI/Abdominal Exam GI & Abdominal Exam: Soft, Normal Bowel Sounds. absent: Distended, Tenderness - Extremities Exam Extremities Exam: Full ROM, Normal Inspection - Neurological Exam Neurological Exam: Alert, Awake, CN II-XII Intact, Oriented x3 - Psychiatric Exam Psychiatric exam: Normal Affect, Normal Mood - Skin Additional comments: Had R upper chest wall incision Non tender Non erythematous No discharge appreciated Good grannulation tissue Open incision measuring 5.5x1.25cm now closed by suturing. Assessment and Plan - Assessment and Plan (Free Text) Assessment: 27 yo AA female with sickle cell trait and Iron deficiency anemia presented with recent Port placement in right upper chest that had dehissence of the incision site but no signs of gross infection. No other symptomology. Supportive care. Started on Zosyn IV and Vancomycin IV. If cultures of site are negative, can consider oral medications again. Incision site remains closed and patient makes no complaints. If cultures are negative at 48 hours, can consider discharge on PO Keflex 500mg TID for up to 14 days more. Thank you for allowing me to participate in the care of the patient, we will follow with you.
[2018-07-04] MEDS: Vancomycin 1gm in NS 250ml 1 GM/250 ML BAG IVPB SCH ×2 (05:04→15:06)
[2018-07-04] MEDS: Piperacillin/Tazobact 3.375 gm 100 ML IVPB SCH ×2 (06:49→13:20)
[2018-07-04] MEDS: Pantoprazole 40 mg EC Tab PO SCH (06:49)
[2018-07-04 07:47] LABS: BASO # 0.01 K/mm3 (0.0-2.0); BASO % 0.1 % (0.0-3.0); EOS # 0.2 (0.0-0.7); EOS % 1.7 % (1.5-5.0); GRAN # 6.44 (1.4-6.5); GRAN % 68.8 % (50.0-68.0); HEMOGLOBIN 10.5 g/dL (12.0-16.0); LYMPH # 2.3 (1.2-3.4); LYMPH % 24.1 % (22.0-35.0); MEAN CORPUSCULAR HEMOGLOBIN 25.8 pg (25.0-35.0); MEAN CORPUSCULAR HGB CONC 31.1 g/dl (31.0-37.0); MEAN PLATELET VOLUME 9.2 fl (7.0-11.0); MONO # 0.5 (0.1-0.6); MONO % 5.3 % (1.0-6.0); RBC 4.07 10^6/uL (3.5-6.1); RED CELL DISTRIBUTION WIDTH 22.9 % (11.5-14.5); WHITE BLOOD COUNT 9.4 10^3/uL (4.5-11.0)
[2018-07-04 08:11] LABS: ALB/GLOB RATIO 0.9 (1.1-1.8); ALBUMIN 3.6 g/dL (3.0-4.8); ALT/SGPT 25 U/L (7-56); AST/SGOT 26 U/L (14-36); BLOOD UREA NITROGEN 8 mg/dL (7-21); CALCIUM 8.8 mg/dL (8.4-10.5); GFR NON-AFRICAN AMERICAN > 60
[2018-07-04] MEDS: Enoxaparin 40 mg Syringe SC SCH (09:19)
[2018-07-04 14:35] VITALS: BP 101/55; PULSE 72; RESP 20; TEMP 98.5
--- NOTE | 2018-07-04 19:09 | CP.PCM.PN ---
Subjective - Date & Time of Evaluation Date of Evaluation: 07/04/18 Time of Evaluation: 16:30 - Subjective Subjective: Infectious Disease Follow Up: July 04, 2018 27F w/ a PMH of sickle cell trait, Iron Def Anemia on weekly Iron transfusion QTues s/p R subclavian Port placement , Recently Dx PID (05/2018), presented to [facility] on 07/02 w/ complaints that her port site may be infected. She stated that she got her port placed on 06/11/2018. She reported shortly after it was placed; the incision opened up, and she sought out her Heme/Onc (Druck/Palathingal). Pt. was started on PO ABX therapy, however still reports that it is open. She denies any erythema, surrounding the port site, any recent fevers, chills, tenderness at the site. She does report some soreness with movement of her R arm. Denies any pus or purulent discharge from site. Denies any signs of PID/UTI. No dizziness, chest pain, palpitations, SOB. She showed her mother who was concerned, and brought her to the ER. Seen by Dr. Iraj Guidry who revised port and sutured wound Cultures negative at 48 hours. Patient wants to go home. Objective - Vital Signs/Intake and Output Vital Signs (last 24 hours): Temp Pulse Resp BP Pulse Ox 98.5 F 72 20 101/55 L 100 07/04/18 14:00 07/04/18 14:00 07/04/18 14:00 07/04/18 14:00 07/04/18 14:00 - Labs Labs: 07/04/18 07:15 07/04/18 07:00 - Constitutional Appears: Non-toxic, No Acute Distress, Chronically Ill - Head Exam Head Exam: ATRAUMATIC, NORMOCEPHALIC - Eye Exam Eye Exam: EOMI, PERRL Pupil Exam: NORMAL ACCOMODATION, PERRL - ENT Exam ENT Exam: Mucous Membranes Moist, Normal External Ear Exam, TM's Normal Bilaterally - Neck Exam Neck Exam: Full ROM, Normal Inspection - Respiratory Exam Respiratory Exam: Clear to Ausculation Bilateral, NORMAL BREATHING PATTERN. absent: Rales, Rhonchi, Wheezes - Cardiovascular Exam Cardiovascular Exam: REGULAR RHYTHM, RRR, +S1, +S2 - GI/Abdominal Exam GI & Abdominal Exam: Soft, Normal Bowel Sounds. absent: Distended, Tenderness - Extremities Exam Extremities Exam: Full ROM, Normal Inspection - Neurological Exam Neurological Exam: Alert, Awake, CN II-XII Intact, Oriented x3 - Psychiatric Exam Psychiatric exam: Normal Affect, Normal Mood - Skin Additional comments: Had R upper chest wall incision Non tender Non erythematous No discharge appreciated Good grannulation tissue Open incision measuring 5.5x1.25cm now closed by suturing. Assessment and Plan - Assessment and Plan (Free Text) Assessment: 27 yo AA female with sickle cell trait and Iron deficiency anemia presented with recent Port placement in right upper chest that had dehissence of the incision site but no signs of gross infection. No other symptomology. Supportive care. Started on Zosyn IV and Vancomycin IV. If cultures of site are negative, can consider oral medications again. Incision site remains closed and patient makes no complaints. If cultures are negative at 48 hours, can consider discharge on PO Keflex 500mg TID for up to 14 days more. Cultures negative at 48 hours. Thank you for allowing me to participate in the care of the patient, we will follow with you
--- NOTE | 2018-07-04 21:28 | CP.PCM.DIS ---
<Elijah Kay - Last Filed: 07/04/18 21:29> Provider - Provider Date of Admission: 07/03/18 19:03 Attending physician: Mando Ohara MD Time Spent in preparation of Discharge (in minutes): 45 Diagnosis - Discharge Diagnosis (1) Wound dehiscence Status: Acute Priority: High (2) Port or reservoir infection Status: Acute Priority: High (3) Sickle cell trait syndrome Status: Chronic Priority: High Hospital Course - Lab Results Lab Results: Micro Results 07/02/18 01:45 Catheter Site Gram Stain - Final 07/02/18 01:45 Catheter Site Wound Culture - Preliminary No growth. 07/02/18 02:55 Blood Blood Culture - Preliminary NO GROWTH AFTER 48 HOURS 07/02/18 02:25 Blood Blood Culture - Preliminary NO GROWTH AFTER 48 HOURS Most Recent Lab Values WBC 9.4 10^3/uL (4.5-11.0) D 07/04/18 07:15 RBC 4.07 10^6/uL (3.5-6.1) 07/04/18 07:15 Hgb 10.5 g/dL (12.0-16.0) L 07/04/18 07:15 Hct 33.8 % (36.0-48.0) L 07/04/18 07:15 MCV 83.0 fl (80.0-105.0) 07/04/18 07:15 MCH 25.8 pg (25.0-35.0) 07/04/18 07:15 MCHC 31.1 g/dl (31.0-37.0) 07/04/18 07:15 RDW 22.9 % (11.5-14.5) H 07/04/18 07:15 Plt Count 339 10^3/uL (120.0-450.0) 07/04/18 07:15 MPV 9.2 fl (7.0-11.0) 07/04/18 07:15 Gran % 68.8 % (50.0-68.0) H 07/04/18 07:15 Lymph % (Auto) 24.1 % (22.0-35.0) 07/04/18 07:15 [place] % (Auto) 5.3 % (1.0-6.0) 07/04/18 07:15 Eos % (Auto) 1.7 % (1.5-5.0) 07/04/18 07:15 Baso % (Auto) 0.1 % (0.0-3.0) 07/04/18 07:15 Gran # 6.44 (1.4-6.5) 07/04/18 07:15 Lymph # (Auto) 2.3 (1.2-3.4) 07/04/18 07:15 [place] # (Auto) 0.5 (0.1-0.6) 07/04/18 07:15 Eos # (Auto) 0.2 (0.0-0.7) 07/04/18 07:15 Baso # (Auto) 0.01 K/mm3 (0.0-2.0) 07/04/18 07:15 Sodium 138 mmol/L (132-148) 07/04/18 07:00 Potassium 4.0 mmol/L (3.6-5.0) 07/04/18 07:00 Chloride 109 mmol/L (98-107) H 07/04/18 07:00 Carbon Dioxide 21 mmol/L (21-33) 07/04/18 07:00 Anion Gap 12 (10-20) 07/04/18 07:00 BUN 8 mg/dL (7-21) 07/04/18 07:00 Creatinine 0.6 mg/dl (0.7-1.2) L 07/04/18 07:00 Est GFR ( Amer) > 60 07/04/18 07:00 Est GFR (Non-Af Amer) > 60 07/04/18 07:00 Random Glucose 88 mg/dL (70-110) 07/04/18 07:00 Calcium 8.8 mg/dL (8.4-10.5) 07/04/18 07:00 Phosphorus 4.1 mg/dL (2.5-4.5) 07/02/18 08:35 Magnesium 1.8 mg/dL (1.7-2.2) 07/02/18 08:35 Iron 72 ug/dL (45-180) 07/02/18 04:45 TIBC 331 ug/dL (265-497) 07/02/18 04:45 % Saturation 22 % (20-55) 07/02/18 04:45 Transferrin 224.51 mg/dL (206-381) 07/02/18 04:45 Ferritin 246.0 ng/mL 07/02/18 04:45 Total Bilirubin 0.2 mg/dL (0.2-1.3) 07/04/18 07:00 AST 26 U/L (14-36) 07/04/18 07:00 ALT 25 U/L (7-56) 07/04/18 07:00 Alkaline Phosphatase 81 U/L (38-126) 07/04/18 07:00 Total Protein 7.5 g/dL (5.8-8.3) 07/04/18 07:00 Albumin 3.6 g/dL (3.0-4.8) 07/04/18 07:00 Globulin 3.9 gm/dL 07/04/18 07:00 Albumin/Globulin Ratio 0.9 (1.1-1.8) L 07/04/18 07:00 Urine Color Dark yellow (YELLOW) 07/02/18 12:30 Urine Appearance Clear (CLEAR) 07/02/18 12:30 Urine pH 6.0 (4.7-8.0) 07/02/18 12:30 Ur Specific [place] >= 1.030 (1.005-1.035) 07/02/18 12:30 Urine Protein Trace mg/dL (<30 mg/dL) H 07/02/18 12:30 Urine Glucose (UA) Negative mg/dL (NEGATIVE) 07/02/18 12:30 Urine Ketones Negative mg/dL (NEGATIVE) 07/02/18 12:30 Urine Blood Negative (NEGATIVE) 07/02/18 12:30 Urine Nitrate Negative (NEGATIVE) 07/02/18 12:30 Urine Bilirubin Negative (NEGATIVE) 07/02/18 12:30 Urine Urobilinogen 0.2 E.U./dL (<1 E.U./dL) 07/02/18 12:30 Ur Leukocyte Esterase Negative Mary/uL (NEGATIVE) 07/02/18 12:30 Urine RBC 1 - 3 /hpf (0-2) 07/02/18 12:30 Urine WBC 2 - 5 /hpf (0-6) 07/02/18 12:30 Ur Epithelial Cells 6 - 8 /hpf (0-5) 07/02/18 12:30 Urine Bacteria Many (NEG) 07/02/18 12:30 Urine Other Uyeast 07/02/18 12:30 Urine HCG, Qual Negative (NEGATIVE) 07/02/18 12:30 - Hospital Course Hospital Course: Pt is a 27 year old female with PMH of sickle cell trait and chronic iron deficiency anemia on iron transfusion s/p R subclavian Port placement who presented for concern for port site placement on 07/02/18. Pt stated that she got her port placed on 06/11/2018, shortly after it was placed; the incision opened up, and she sought out her Heme/Onc (Dr. Trevino/Dr. Chapman). Pt. was started on oral antibiotic therapy, however she reported that the port site remained open which prompted her to come to the ED. She denied any erythema surrounding the port site or any pus/purulent drainage. She denied any recent fevers, chills, chest pain, SOB, palpitations, or tenderness at the site. She did report some soreness with movement of her R arm. On admission, pt was afebrile, no leukocytosis, non toxic. She was started on empiric Vancomycin and zosyn. Infectious disease was consulted for antibiotic optimization. Interventional radiology, Dr. Guidry who placed the port, was consulted. IR inspected the port, cleaned the site and closed the wound. Iron panel was within normal limits and pts anemia remained stable. Blood and wound cultures were negative. Pts port site remained closed and without drainage, erythema, or tenderness. Pt was discharged on PO Keflex 500 mg TID for 14 days. - Date & Time of H&P Date of H&P: 07/04/18 Time of H&P: 19:00 Discharge Exam - Head Exam Head Exam: ATRAUMATIC, NORMOCEPHALIC - Eye Exam Eye Exam: EOMI - ENT Exam ENT Exam: Mucous Membranes Moist - Respiratory Exam Respiratory Exam: Chest Wall Tenderness, NORMAL BREATHING PATTERN, UNREMARKABLE Additional comments: port site sutured, no signs of infection - Cardiovascular Exam Cardiovascular Exam: RRR, +S1, +S2. absent: Diastolic murmur, Systolic Murmur - GI/Abdominal Exam GI & Abdominal Exam: Normal Bowel Sounds, Unremarkable. absent: Soft, Tenderness - Extremities Exam Extremities exam: full ROM, pedal pulses present - Neurological Exam Neurological exam: Alert, Oriented x3 - Psychiatric Exam Psychiatric exam: Normal Affect, Normal Mood - Skin Skin Exam: Dry, Intact, Warm Discharge Plan - Discharge Medications Prescriptions: Cephalexin [Keflex] 500 mg PO TID #30 capsule - Follow Up Plan Condition: STABLE Disposition: HOME/ ROUTINE Instructions: Cellulitis (DC), Cellulitis (GEN) Additional Instructions: 1. please follow up with your primary care physician within 1 week of discharge 2. complete your entire course 10 day course of your oral antibiotics, Keflex 3. if your symptoms return or worsen, please go to the nearest emergency depart ment <Mando Ohara - Last Filed: 07/05/18 11:19> Provider - Provider Date of Admission: 07/03/18 19:03 Attending physician: Mando Ohara MD Hospital Course - Lab Results Lab Results: Micro Results 07/02/18 02:55 Blood Blood Culture - Preliminary NO GROWTH AFTER 3 DAYS 07/02/18 02:25 Blood Blood Culture - Preliminary NO GROWTH AFTER 3 DAYS 07/02/18 01:45 Catheter Site Gram Stain - Final 07/02/18 01:45 Catheter Site Wound Culture - Preliminary No growth. Most Recent Lab Values WBC 9.4 10^3/uL (4.5-11.0) D 07/04/18 07:15 RBC 4.07 10^6/uL (3.5-6.1) 07/04/18 07:15 Hgb 10.5 g/dL (12.0-16.0) L 07/04/18 07:15 Hct 33.8 % (36.0-48.0) L 07/04/18 07:15 MCV 83.0 fl (80.0-105.0) 07/04/18 07:15 MCH 25.8 pg (25.0-35.0) 07/04/18 07:15 MCHC 31.1 g/dl (31.0-37.0) 07/04/18 07:15 RDW 22.9 % (11.5-14.5) H 07/04/18 07:15 Plt Count 339 10^3/uL (120.0-450.0) 07/04/18 07:15 MPV 9.2 fl (7.0-11.0) 07/04/18 07:15 Gran % 68.8 % (50.0-68.0) H 07/04/18 07:15 Lymph % (Auto) 24.1 % (22.0-35.0) 07/04/18 07:15 [place] % (Auto) 5.3 % (1.0-6.0) 07/04/18 07:15 Eos % (Auto) 1.7 % (1.5-5.0) 07/04/18 07:15 Baso % (Auto) 0.1 % (0.0-3.0) 07/04/18 07:15 Gran # 6.44 (1.4-6.5) 07/04/18 07:15 Lymph # (Auto) 2.3 (1.2-3.4) 07/04/18 07:15 [place] # (Auto) 0.5 (0.1-0.6) 07/04/18 07:15 Eos # (Auto) 0.2 (0.0-0.7) 07/04/18 07:15 Baso # (Auto) 0.01 K/mm3 (0.0-2.0) 07/04/18 07:15 Sodium 138 mmol/L (132-148) 07/04/18 07:00 Potassium 4.0 mmol/L (3.6-5.0) 07/04/18 07:00 Chloride 109 mmol/L (98-107) H 07/04/18 07:00 Carbon Dioxide 21 mmol/L (21-33) 07/04/18 07:00 Anion Gap 12 (10-20) 07/04/18 07:00 BUN 8 mg/dL (7-21) 07/04/18 07:00 Creatinine 0.6 mg/dl (0.7-1.2) L 07/04/18 07:00 Est GFR ( Amer) > 60 07/04/18 07:00 Est GFR (Non-Af Amer) > 60 07/04/18 07:00 Random Glucose 88 mg/dL (70-110) 07/04/18 07:00 Calcium 8.8 mg/dL (8.4-10.5) 07/04/18 07:00 Phosphorus 4.1 mg/dL (2.5-4.5) 07/02/18 08:35 Magnesium 1.8 mg/dL (1.7-2.2) 07/02/18 08:35 Iron 72 ug/dL (45-180) 07/02/18 04:45 TIBC 331 ug/dL (265-497) 07/02/18 04:45 % Saturation 22 % (20-55) 07/02/18 04:45 Transferrin 224.51 mg/dL (206-381) 07/02/18 04:45 Ferritin 246.0 ng/mL 07/02/18 04:45 Total Bilirubin 0.2 mg/dL (0.2-1.3) 07/04/18 07:00 AST 26 U/L (14-36) 07/04/18 07:00 ALT 25 U/L (7-56) 07/04/18 07:00 Alkaline Phosphatase 81 U/L (38-126) 07/04/18 07:00 Total Protein 7.5 g/dL (5.8-8.3) 07/04/18 07:00 Albumin 3.6 g/dL (3.0-4.8) 07/04/18 07:00 Globulin 3.9 gm/dL 07/04/18 07:00 Albumin/Globulin Ratio 0.9 (1.1-1.8) L 07/04/18 07:00 Urine Color Dark yellow (YELLOW) 07/02/18 12:30 Urine Appearance Clear (CLEAR) 07/02/18 12:30 Urine pH 6.0 (4.7-8.0) 07/02/18 12:30 Ur Specific [place] >= 1.030 (1.005-1.035) 07/02/18 12:30 Urine Protein Trace mg/dL (<30 mg/dL) H 07/02/18 12:30 Urine Glucose (UA) Negative mg/dL (NEGATIVE) 07/02/18 12:30 Urine Ketones Negative mg/dL (NEGATIVE) 07/02/18 12:30 Urine Blood Negative (NEGATIVE) 07/02/18 12:30 Urine Nitrate Negative (NEGATIVE) 07/02/18 12:30 Urine Bilirubin Negative (NEGATIVE) 07/02/18 12:30 Urine Urobilinogen 0.2 E.U./dL (<1 E.U./dL) 07/02/18 12:30 Ur Leukocyte Esterase Negative Mary/uL (NEGATIVE) 07/02/18 12:30 Urine RBC 1 - 3 /hpf (0-2) 07/02/18 12:30 Urine WBC 2 - 5 /hpf (0-6) 07/02/18 12:30 Ur Epithelial Cells 6 - 8 /hpf (0-5) 07/02/18 12:30 Urine Bacteria Many (NEG) 07/02/18 12:30 Urine Other Uyeast 07/02/18 12:30 Urine HCG, Qual Negative (NEGATIVE) 07/02/18 12:30 Attending/Attestation - Attestation I have personally seen and examined this patient.: Yes I have fully participated in the care of the patient.: Yes I have reviewed all pertinent clinical information, including history, physical exam and plan: Yes
== END 2018-07-04 17:40 | disposition home or self-care (01) | DRG 452 ==
LOC: ED 00:29 → ERH 03:23 → OBSVTOIN 05:00 → 5RSO 05:48 → INTOOBSV 07-03 19:03 → OBSVTOIN 07-03 19:03
PROVIDERS: ADMIT Internal Medicine; ATTEND Internal Medicine
PROC: 0JQ63ZZ Repair Chest Subcutaneous Tissue and Fascia, Percutaneous Approach (ICD-10-PCS; principal; 2018-07-02)
DX: T81.31XA Disruption of external operation (surgical) wound, not elsewhere classified, initial encounter (principal); T80.212A Local infection due to central venous catheter, initial encounter; L03.313 Cellulitis of chest wall; D57.3 Sickle-cell trait; D50.9 Iron deficiency anemia, unspecified; Y84.8 Other medical procedures as the cause of abnormal reaction of the patient, or of later complication, without mention of misadventure at the time of the procedure

== ENCOUNTER 2018-09-30 19:30 | Emergency (ER) | payer MEDICAID, OTHER ==
[2018-09-30 19:38] VITALS: BMI 39.3
[2018-09-30 19:41] VITALS: TEMP 98.4; O2SAT 99
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
[2018-09-30 20:55] VITALS: BP 127/80; PULSE 80; RESP 18
--- NOTE | 2018-10-01 10:41 | RAD ---
PROCEDURE: Left Hand Radiographs. HISTORY: finger pain secondary to pain COMPARISON: None. FINDINGS: BONES: Normal. No fracture. JOINTS: Normal. No osteoarthritic changes. SOFT TISSUES: Normal. OTHER FINDINGS: None. IMPRESSION: Normal left hand radiographs.
== END 2018-09-30 20:54 | disposition home or self-care (01) ==
LOC: ED 19:30
DX: S63.611A Unspecified sprain of left index finger, initial encounter (principal); W18.30XA Fall on same level, unspecified, initial encounter

== ENCOUNTER 2018-11-15 19:19 | Emergency (ER) | payer SELFPAY ==
[2018-11-15 20:03] VITALS: BMI 42.0
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
[2018-11-15 22:16] VITALS: PULSE 89; RESP 18; TEMP 98
[2018-11-15 23:42] VITALS: BP 124/70; O2SAT 99
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
== END 2018-11-15 23:42 | disposition home or self-care (01) ==
LOC: ED 19:19
DX: S00.83XA Contusion of other part of head, initial encounter (principal); Y04.0XXA Assault by unarmed brawl or fight, initial encounter